=== PATIENT | female | born 1960 | race Caucasian/White ===

== ENCOUNTER 2019-04-15 15:25 | Outpatient (REF) | payer OTHER, MEDICAID, SELFPAY ==
[2019-04-15 21:58] LABS: BUN 7 mg/dL (7-18); CREATININE 0.54 mg/dL (0.55-1.02); Calcium 8.6 mg/dL (8.5-10.1); Chloride 101 mmol/L (98-107); Cholesterol 188 mg/dL (50-200); Glucose 67 mg/dL (70-100); HDL Cholesterol 66 mg/dL (40-60); LDL CHOLESTEROL 97 mg/dL (<100); Potassium 4.3 mmol/L (3.5-5.1); Sodium 139 mmol/L (136-145); Triglyceride 143 mg/dL (30-150); Vitamin B12 386 pg/mL (193-986)
[2019-04-17 06:33] LABS: Vitamin D 25 Total 43.1 ng/ml (30-100)
== END 2019-04-15 15:45 ==
LOC: NCHCN 15:25
PROVIDERS: PCP Family Medicine; Visit Provider Family Medicine
DX: Z00.00 Encounter for general adult medical examination without abnormal findings (principal); E53.8 Deficiency of other specified B group vitamins; M81.0 Age-related osteoporosis without current pathological fracture; Z01.818 Encounter for other preprocedural examination
CPT/HCPCS: 80048; 80061; 82306; 83721; 82607

== ENCOUNTER → 2019-05-02 10:53 | Outpatient (REF) | payer OTHER, SELFPAY ==
--- NOTE | 2019-05-02 09:40 | PAPFT_PTH ---
PATIENT: Trudy Lowe LOC: [facility] U#:[id number] AGE/SX: 65/F ROOM: RE05/02/[address]: Sandra Gonzalez : 1960 BED: DIS: SPEC #: [id number] RECD: 05/05/19 13:07 STATUS: JULIANNA REMarty #: [id number] VIVIAN: 05/02/19 09:[address]: Sandra Gonzalez DEPT: [facility] Cytology RECD BY: Yamila Alvarez Tissues: 1 - CX/ENDOCX FOR PAP SMEARS Procedures: PAP THIN PREP/UVM Screening HPV DNA PROBE Comments: [id number] (CHLAMYDIA/GC)
[2019-05-02 21:19] LABS: Abs Immature Grans 0.03 k/cumm (0.0-0.09); Absolute Basophil Count 0.04 k/cumm (0.0-0.2); Absolute Eosinophil Count 0.18 k/cumm (0.0-0.7); Absolute Lymphocyte Count 2.07 k/cumm (1.2-3.4); Absolute Monocyte Count 0.92 k/cumm (0.11-0.7); Absolute Neutrophil Count 4.39 k/cumm (1.2-6.7); Basophils % 0.5; Eosinophils % 2.4; HCT 42.6 % (36.0-46.0); HGB 13.9 g/dL (12.0-15.5); Immature Grans % 0.4; Lymphocytes % 27.1; Mean Corp. HGB Concentration 32.6 g/dL (32.0-36.0); Mean Corpuscular Hemoglobin 31.1 pg (27.0-33.0); Mean Corpuscular Volume 95.3 fL (80-95); Mean Platelet Volume 11.5 fL (8.0-11.0); Monocytes % 12.1; Neutrophils % 57.5; Platelet Count 274 x1000/uL (130-400); RBC 4.47 m/cumm (4.00-5.20); RBC Distribution Width 12.6 % (11.7-14.6); White Blood Cell Count 7.63 k/cumm (4.4-10.8)
[2019-05-02 21:37] LABS: ALT 26 U/L (12-78); AST 18 U/L (15-37); Albumin 3.4 g/dL (3.4-5.0); Alkaline Phosphatase 82 U/L (46-116); Anion Gap 8.5 mmol/L (3-11); BUN 7 mg/dL (7-18); Bilirubin, Total 0.2 mg/dL (0.2-1.0); CO2 27.5 mmol/L (21.0-32.0); CREATININE 0.53 mg/dL (0.55-1.02); Calcium 8.8 mg/dL (8.5-10.1); Chloride 103 mmol/L (98-107); Glucose 85 mg/dL (70-100); Potassium 3.8 mmol/L (3.5-5.1); Sodium 139 mmol/L (136-145); Total Protein 6.6 g/dL (6.4-8.2)
[2019-05-06 13:46] LABS: Chlamydia Result Negative; GC Result Negative; Specimen Description SEE COMMENTS
== END ==
LOC: NCHCN 10:53
PROVIDERS: PCP Family Medicine; Visit Provider Family Medicine
DX: R10.32 Left lower quadrant pain (principal); Z11.3 Encounter for screening for infections with a predominantly sexual mode of transmission; Z12.4 Encounter for screening for malignant neoplasm of cervix; Z11.51 Encounter for screening for human papillomavirus (HPV)
CPT/HCPCS: 80053; 87491; 87591; 88142; 85025; 87086; 87624

== ENCOUNTER 2019-09-04 13:12 | Outpatient (REF) | payer OTHER, SELFPAY ==
[2019-09-04 21:35] LABS: Anion Gap 7.9 mmol/L (3-11); BUN 6 mg/dL (7-18); CO2 30.1 mmol/L (21.0-32.0); CREATININE 0.53 mg/dL (0.55-1.02); Calcium 9.5 mg/dL (8.5-10.1); Chloride 105 mmol/L (98-107); Glucose 108 mg/dL (70-100); Magnesium 1.7 mg/dL (1.8-2.4); Potassium 4.2 mmol/L (3.5-5.1); Sodium 143 mmol/L (136-145)
[2019-09-04 22:00] LABS: HCT 40.9 % (36.0-46.0); HGB 12.9 g/dL (12.0-15.5); Mean Corp. HGB Concentration 31.5 g/dL (32.0-36.0); Mean Corpuscular Hemoglobin 28.7 pg (27.0-33.0); Mean Corpuscular Volume 90.9 fL (80-95); Platelet Count 344 x1000/uL (130-400); RBC Distribution Width 14.7 % (11.7-14.6); White Blood Cell Count 10.01 k/cumm (4.4-10.8)
== END 2019-09-04 13:32 ==
LOC: NCHCN 13:12
PROVIDERS: PCP Family Medicine; Visit Provider Family Medicine
DX: D64.9 Anemia, unspecified (principal); Z93.2 Ileostomy status
CPT/HCPCS: 80048; 85027; 83735

== ENCOUNTER 2020-04-06 14:59 | Outpatient (REF) | payer OTHER, SELFPAY ==
[2020-04-08 17:14] LABS: COVID-19 RT-PCR Result NEGATIVE (Negative)
== END 2020-04-06 15:19 ==
LOC: NCHCN 14:59
PROVIDERS: PCP Family Medicine; Visit Provider Physician Assistant
DX: R05 Cough (principal)
CPT/HCPCS: U0003

== ENCOUNTER 2020-10-05 15:11 | Outpatient (REF) | payer OTHER, SELFPAY ==
[2020-10-05 20:57] LABS: Magnesium 1.8 mg/dL (1.8-2.4)
== END 2020-10-05 15:31 ==
LOC: NCHCN 15:11
PROVIDERS: PCP Family Medicine; Visit Provider Nurse Practitioner Family
DX: R25.2 Cramp and spasm (principal)
CPT/HCPCS: 83735

== ENCOUNTER 2021-02-17 14:59 | Outpatient (REF) | payer OTHER, MEDICAID, SELFPAY ==
--- NOTE | 2021-02-17 14:15 | PAPFT_PTH ---
PATIENT: Trudy Lowe LOC: [facility]#:[id number] AGE/SX: 60/F ROOM: RE02/17/[address]: Rylie Escobar : 1960 BED: DIS: 02/17/2021 SPEC #: [id number] RECD: 02/18/21 12:57 STATUS: JULIANNA REMarty #: [id number] VIVIAN: 02/17/21 14:[address]: Rylie Escobar DEPT: [facility] Cytology RECD BY: Yamila Alvarez ENTERED: 02/18/21 12:57 SP TYPE: PAPFT OTHR DR: Sandra Gonzalez Tissues: 1 - CX/ENDOCX FOR PAP SMEARS Procedures: PAP THIN PREP/UVM Screening HPV DNA PROBE Comments: [id number] (CHLAMYDIA/GC)
[2021-02-21 11:17] LABS: Hepatitis C Ab w Rflx HCV PCR Negative (Negative)
[2021-02-21 13:52] LABS: Chlamydia Result Negative (Negative); GC Result Negative (Negative)
== END 2021-02-17 15:00 | disposition home or self-care (01) ==
LOC: NCHCN 14:59
PROVIDERS: PCP Family Medicine; Visit Provider Nurse Practitioner Family
DX: Z11.59 Encounter for screening for other viral diseases (principal); Z11.3 Encounter for screening for infections with a predominantly sexual mode of transmission; Z12.4 Encounter for screening for malignant neoplasm of cervix; Z11.51 Encounter for screening for human papillomavirus (HPV); R87.810 Cervical high risk human papillomavirus (HPV) DNA test positive
CPT/HCPCS: 86803; 87491; 87591; 88142; 87624

== ENCOUNTER 2022-05-25 16:32 | Outpatient (REF) | payer OTHER, MEDICAID, SELFPAY ==
--- NOTE | 2022-05-25 16:00 | PAPFT_PTH ---
PATIENT: Trudy Lowe LOC: [facility]#:[id number] AGE/SX: 61/F ROOM: RE05/25/[address]: Sandra Gonzalez : 1960 BED: DIS: 05/25/2022 SPEC #: [id number] RECD: 05/26/22 09:36 STATUS: JULIANNA REQ #: [id number] VIVIAN: 05/25/22 16:[address]: Sandra Gonzalez DEPT: [facility] Cytology RECD BY: Tona Lamb Tissues: 1 - CX/ENDOCX FOR PAP SMEARS Procedures: PAP THIN PREP/UVM Screening HPV DNA PROBE Comments: [id number]
== END 2022-05-25 16:33 | disposition home or self-care (01) ==
LOC: NCHCN 16:32
PROVIDERS: PCP Family Medicine; Visit Provider Family Medicine
DX: Z12.4 Encounter for screening for malignant neoplasm of cervix (principal); Z11.51 Encounter for screening for human papillomavirus (HPV); Z01.419 Encounter for gynecological examination (general) (routine) without abnormal findings
CPT/HCPCS: 88142; 87624

== ENCOUNTER 2022-10-10 20:51 | Outpatient (REF) | payer OTHER, MEDICAID, SELFPAY ==
[2022-10-10 21:08] LABS: Abs Immature Grans 0.04 10^3/uL (0.0-0.06); Absolute Basophil Count 0.09 10^3/uL (0.0-0.2); Absolute Eosinophil Count 0.21 10^3/uL (0.0-0.7); Absolute Lymphocyte Count 2.45 10^3/uL (1.2-3.4); Absolute Monocyte Count 0.65 10^3/uL (0.1-0.8); Absolute Neutrophil Count 5.41 10^3/uL (1.2-6.7); Eosinophils % 2.4; HGB 15.2 g/dL (11.2-15.7); Immature Grans % 0.5; Lymphocytes % 27.7; MCH 30.8 pg (27.0-33.0); MCV 93 fL (80-95); MPV 11.3 fL (8.0-11.0); Monocytes % 7.3; Neutrophils % 61.1; Platelet Count 274 10^3/uL (130-400); RBC 4.94 10^6/uL (3.93-5.22); RDW 13.2 % (11.7-14.6); RDW-SD 45.1 fL; WBC 8.85 10^3/uL (4.4-10.8)
[2022-10-10 21:37] LABS: ALT 61 U/L (14-59); AST 42 U/L (15-37); Albumin 3.9 g/dL (3.4-5.0); Alkaline Phosphatase 98 U/L (46-116); Anion Gap 5.7 mmol/L (3-11); BUN 10 mg/dL (7-18); Bilirubin, Total 0.4 mg/dL (0.2-1.0); CO2 32.3 mmol/L (21.0-32.0); CREATININE 0.7 mg/dL (0.55-1.02); Calcium 9.3 mg/dL (8.5-10.1); Calculated LDL 121 mg/dL (<100); Chloride 101 mmol/L (98-107); Cholesterol 236 mg/dL (<200); Estimated GFR 97.12 (mL/min/1.73m2); Glucose 104 mg/dL (74-106); HDL Cholesterol 61 mg/dL (40-60); Sodium 139 mmol/L (136-145); TSH (W/Ref FT4) 1.65 uIU/mL (0.36-3.74); Total Protein 7.7 g/dL (6.4-8.2); Triglyceride 274 mg/dL (<150)
== END 2022-10-10 20:52 | disposition home or self-care (01) ==
LOC: NCHCN 20:51
PROVIDERS: PCP Family Medicine; Visit Provider Family Medicine
DX: R10.10 Upper abdominal pain, unspecified (principal); E04.1 Nontoxic single thyroid nodule; Z00.00 Encounter for general adult medical examination without abnormal findings
CPT/HCPCS: 80053; 80061; 84443; 85025

== ENCOUNTER 2023-03-12 14:14 | Outpatient (REF) | payer OTHER, MEDICAID, SELFPAY ==
[2023-03-12 14:40] LABS: Abs Immature Grans 0.03 10^3/uL (0.0-0.06); Absolute Basophil Count 0.09 10^3/uL (0.0-0.2); Absolute Neutrophil Count 4.65 10^3/uL (1.2-6.7); Basophils % 1.1; Eosinophils % 2.4; HCT 46.3 % (36.0-46.0); HGB 15.2 g/dL (11.2-15.7); Immature Grans % 0.4; Lymphocytes % 30.2; MCH 30.3 pg (27.0-33.0); MCHC 32.8 % (32.0-36.0); MCV 92 fL (80-95); MPV 10.7 fL (8.0-11.0); Monocytes % 9.7; Neutrophils % 56.2; Platelet Count 290 10^3/uL (130-400); RBC 5.01 10^6/uL (3.93-5.22); RDW 13.2 % (11.7-14.6); RDW-SD 44.4 fL; WBC 8.27 10^3/uL (4.4-10.8)
[2023-03-12 15:24] LABS: Anion Gap 6.1 mmol/L (3-11); BUN 10 mg/dL (7-18); CO2 29.9 mmol/L (21.0-32.0); CREATININE 0.7 mg/dL (0.55-1.02); Calcium 9.5 mg/dL (8.5-10.1); Chloride 101 mmol/L (98-107); Estimated GFR 97.12 (mL/min/1.73m2); Glucose 97 mg/dL (74-106); Potassium 4.2 mmol/L (3.5-5.1); Sodium 137 mmol/L (136-145)
== END 2023-03-12 14:15 | disposition home or self-care (01) ==
LOC: NCHCN 14:14
PROVIDERS: PCP Family Medicine; Visit Provider Podiatrist
DX: D64.9 Anemia, unspecified (principal); Z01.818 Encounter for other preprocedural examination; Z01.812 Encounter for preprocedural laboratory examination
CPT/HCPCS: 80048; 85025

== ENCOUNTER 2023-06-29 21:15 | Outpatient (REF) | payer OTHER, MEDICAID, SELFPAY ==
--- OUTSIDE RECORDS SUMMARY | 2023-06-29 21:18 | XMS_ITS | CCD ---
Author Name Unknown Address [address], [place] [id number] Organization Unknown Address [address] [place] [address] [phone] Care Team Providers Care Mold Inspector Name Role Phone ROSEANN VERDIN Attending Physician [phone] ROSEANN VERDIN Er Physician [phone] ARABELLA Troncoso Registered Nurse [phone] GALEXANDRA Matos Registered Nurse [phone] GROSA MARIA Matos Registered Nurse [phone] Vital Signs Vital Sign Value Unit Date/Time Recent/Initial ? BMI (Body Mass Index) 25.99 kg/m^2 09/29/2021 18: 04 Initial VS Weight Measured 161 lbs 09/29/2021 18:04 Ini tial VS Height 66 in 09/29/2021 18:04 Initial VS BSA (Body Surface Area) 1.84 m^2 09/29/2021 1 8:04 Initial VS BP Systolic 154 mmHg 09/29/2021 18:04 Initial VS BP Diastolic 87 mmHg 09/29/2021 18:04 Initia l VS Respiratory Rate 18 bpm 09/29/2021 18:04 In itial VS Heart Rate 86 bpm 09/29/2021 18:04 Initial VS O2 % BldC Oximetry 97 % 09/29/2021 18:04 Initial VS Body Temperature 36.5 degrees 09/29/2021 18:04 In itial VS Allergies Allergy Code Allergy Type Reaction Status PENICILLINS (CLASS) 0 Drug allergy Act lamar SULFA (sulfonamide) 0 Drug allergy Hives Act lamar SUCCINYLCHOLINE 56503 Drug allergy IRREGULAR HEART Ac tive Procedures Procedure Code Procedure Type Date Emergency Department Visit Moderate Severity 38620 CPT 09/29/2021 History of Immunizations Unknown or Not Available. Problems Unknown or Not Available. Results Unknown or Not Available. Active Medications Medications Administered During Visit Medication Dose Units Frequency Route Date/Time of Last Dose ACETAMINOPHEN TABLET: 325MG 975 MG X1 PO 09/29/2021 18:17 IBUPROFEN TABLET: 600MG 600 MG X1 PO 09/29/2021 18:17 ER-HYDROCODONE/ACET 6 PACK: 5MG/325MG 1 EA PRN Q6H PO 09/29/2021 19:3 7 Encounters Encounter Diagnosis Diagnosis Code Start Date Displaced fracture of head o f right radius, initial encounter for closed fracture [id number] 09/29/2021 Social History Smoking Status Code Start Date End Date Former smoker [id number] 04/25/2019 Patient Decision Aids Unknown or Not Available. Discharge Instructions You were admitted to [facility] on 09/29/2021 17:54 with a principal diagnosis of Displaced fracture of head of right radius, initial encounter for closed fracture You had the following procedures done:Emergency Department Visit Moderate Severity You were discharged from [facility] on 09/29/2021 19:40 Should you have any questions prior to discharge, please contact a member of your healthcare team. If you have left the hospital and have any questions, please contact your primary care physician. Chief Complaint and Reason For Visit Chief Complaint Date of Onset RIGHT ARM INJURY Function Status Unknown or Not Available. Plan of Care Unknown or Not Available. Referral/Transition of Care Unknown or Not Available.
--- OUTSIDE RECORDS SUMMARY | 2023-06-29 21:18 | XMS_ITS | CCD ---
Author Name Unknown Address [address] [place] [address] [id number] Organization Unknown Address [address] [place] [address] [phone] Care Team Providers Care Medical Reception Name Role Phone PADMA DODSON Attending Physician [phone] PADMA DODSON Rounding (Secondary) Physician [phone] Vital Signs Unknown or Not Available. Allergies Allergy Code Allergy Type Reaction Status BONIVA 554230 Drug allergy RASH Active PENICILLINS (CLASS) 0 Drug allergy Rash; Anaphyla xis Active SULFA (sulfonamide) 0 Drug allergy Hives Act lamar SUCCINYLCHOLINE 90444 Drug allergy IRREGULAR HEART Ac tive SUCCINYLCHOLINE CHLORIDE 3565 Drug allergy HEART ARR HYTHMIAS Active BEE STING 0 Allergy to substance Anaphylaxis Act lamar Procedures Unknown or Not Available. History of Immunizations Unknown or Not Available. Problems Unknown or Not Available. Results Unknown or Not Available. Active Medications Medication Code Dose Units Frequency Route Modificatio n Start Date/Time traZODone hydrochloride 100MG Oral Tablet 062107 100 MILLIGRAMS BEDTIME ORAL 7 09:49 Prescription Detail TAKE 100 MILLIGRAMS ORAL BEDTIME Medications Administered During Visit Unknown or Not Available. Encounters Encounter Diagnosis Diagnosis Code Start Date Follow-up orthopedic assessment [id number] 03/20/2023 Social History Smoking Status Code Start Date End Date Former smoker [id number] 04/25/2019 Patient Decision Aids Unknown or Not Available. Discharge Instructions You were admitted to [facility] on 03/20/2023 00:00 with a principal diagnosis of Encounter for other orthopedic aftercare You were discharged from [facility] on 03/20/2023 00:00 Should you have any questions prior to discharge, please contact a member of your healthcare team. If you have left the hospital and have any questions, please contact your primary care physician. Chief Complaint and Reason For Visit Unknown or Not Available. Function Status Unknown or Not Available. Plan of Care Unknown or Not Available. Referral/Transition of Care Unknown or Not Available.
--- OUTSIDE RECORDS SUMMARY | 2023-06-29 21:18 | XMS_ITS | CCD ---
Author Name Unknown Address [address] [place] [address] [id number] Organization Unknown Address [address] [place] [address] [phone] Care Team Providers Care Rn Home Care Name Role Phone KISHAN KUHN Attending Physician [phone] KISHAN KUHN (Secondary) Physician [phone] Vital Signs Unknown or Not Available. Allergies Allergy Code Allergy Type Reaction Status PENICILLINS (CLASS) 0 Drug allergy Act lamar SULFA (sulfonamide) 0 Drug allergy Hives Act lamar SUCCINYLCHOLINE 00343 Drug allergy IRREGULAR HEART Ac tive Procedures Unknown or Not Available. History of Immunizations Unknown or Not Available. Problems Unknown or Not Available. Results Unknown or Not Available. Active Medications Medication Code Dose Units Frequency Route Modificatio n Start Date/Time traZODone hydrochloride 100MG Oral Tablet 898591 100 MILLIGRAMS BEDTIME ORAL 7 09:49 Prescription Detail TAKE 100 MILLIGRAMS ORAL BEDTIME Medications Administered During Visit Unknown or Not Available. Encounters Encounter Diagnosis Diagnosis Code Start Date Idiopathic osteoarthritis [id number] 2020 Social History Smoking Status Code Start Date End Date Former smoker [id number] 04/25/2019 Patient Decision Aids Unknown or Not Available. Discharge Instructions You were admitted to on 10/21/2021 14:08 with a principal diagnosis of Bilateral primary osteoarthritis of knee You were discharged from on 10/21/2021 00:00 Should you have any questions prior [...]
--- OUTSIDE RECORDS SUMMARY | 2023-06-29 21:18 | XMS_ITS | CCD ---
Author Name Unknown Address [address] [place] [address] [phone] Organization Unknown Address [address] [place] [address] [phone] Care Team Providers Care Customer Field Representative Name Role Phone AMIRAH MERLOS Attending Physician [phone] AMIRAH MERLOS Rounding (Secondary) Physic elver [phone] Vital Signs Unknown or Not Available. Allergies Allergy Code Allergy Type Reaction Status PENICILLINS (CLASS) 0 Drug allergy Act lamar SULFA (sulfonamide) 0 Drug allergy Hives Act lamar SUCCINYLCHOLINE 57539 Drug allergy IRREGULAR HEART Ac tive Procedures Unknown or Not Available. History of Immunizations Unknown or Not Available. Problems Unknown or Not Available. Results Unknown or Not Available. Active Medications Medication Code Dose Units Frequency Route Modificatio n Start Date/Time traZODone hydrochloride 100MG Oral Tablet 929423 100 MILLIGRAMS BEDTIME ORAL 7 09:49 Prescription Detail TAKE 100 MILLIGRAMS ORAL BEDTIME Medications Administered During Visit Unknown or Not Available. Encounters Encounter Diagnosis Diagnosis Code Start Date Nondisplaced fracture of hea d of right radius, initial encounter for closed fracture [id number] 10/03/2021 Social History Smoking Status Code Start Date End Date Former smoker [id number] 04/25/2019 Patient Decision Aids Unknown or Not Available. Discharge Instructions You were admitted to [facility] on 10/03/2021 09:41 with a principal diagnosis of Nondisplaced fracture of head of right radius, initial encounter for closed fracture You were discharged from [facility] on 10/03/2021 00:00 Should you have any questions prior [...]
--- OUTSIDE RECORDS SUMMARY | 2023-06-29 21:18 | XMS_ITS | CCD ---
Author Name Unknown Address [address] [place] [address] [phone] Organization Unknown Address [address] [place] [address] [phone] Care Team Providers Care Machine Shop Apprentice Name Role Phone PADMA DODSON Attending Physician [phone] PADMA DODSON Rounding (Secondary) Physician [phone] Vital Signs Unknown or Not Available. Allergies Allergy Code Allergy Type Reaction Status PENICILLINS (CLASS) 0 Drug allergy Act lamar SULFA (sulfonamide) 0 Drug allergy Hives Act lamar SUCCINYLCHOLINE 12598 Drug allergy IRREGULAR HEART Ac tive Procedures Unknown or Not Available. History of Immunizations Unknown or Not Available. Problems Unknown or Not Available. Results Unknown or Not Available. Active Medications Medication Code Dose Units Frequency Route Modificatio n Start Date/Time traZODone hydrochloride 100MG Oral Tablet 266814 100 MILLIGRAMS BEDTIME ORAL 7 09:49 Prescription Detail TAKE 100 MILLIGRAMS ORAL BEDTIME Medications Administered During Visit Unknown or Not Available. Encounters Encounter Diagnosis Diagnosis Code Start Date Other hammer toe(s) (acquired), left foot M2042 02/15/2023 Social History Smoking Status Code Start Date End Date Former smoker [id number] 04/25/2019 Patient Decision Aids Unknown or Not Available. Discharge Instructions You were admitted to [facility] on 02/15/2023 11:03 with a principal diagnosis of Other hammer toe(s) (acquired), left foot You were discharged from [facility] on 02/15/2023 00:00 Should you have any questions prior [...]
--- OUTSIDE RECORDS SUMMARY | 2023-06-29 21:18 | XMS_ITS | CCD ---
Author Name Unknown Address [address] [place] [address] [id number] Organization Unknown Address [address] [place] [address] [phone] Care Team Providers Care Supervisor Blast Furnace Name Role Phone PADMA DODSON Attending Physician [phone] Vital Signs Vital Sign Value Unit Date/Time Recent/Initial ? BP Systolic 160 mmHg 03/14/2023 09:10 Initial VS BP Diastolic 95 mmHg 03/14/2023 09:10 Initia l VS Respiratory Rate 16 bpm 03/14/2023 09:10 In itial VS Heart Rate 71 bpm 03/14/2023 09:10 Initial VS O2 % BldC Oximetry 99 % 03/14/2023 09:10 Initial VS Body Temperature 36 degrees 03/14/2023 09:10 In itial VS Allergies Allergy Code Allergy Type Reaction Status BONIVA 874126 Drug allergy RASH Active PENICILLINS (CLASS) 0 Drug allergy Rash; Anaphyla xis Active SULFA (sulfonamide) 0 Drug allergy Hives Act lamar SUCCINYLCHOLINE 01170 Drug allergy IRREGULAR HEART Ac tive SUCCINYLCHOLINE CHLORIDE 3565 Drug allergy HEART ARR HYTHMIAS Active BEE STING 0 Allergy to substance Anaphylaxis Act lamar Procedures Procedure Code Procedure Type Date Correction, Hammertoe 70935 CPT 2022 Ostectomy, Partial Excision, 5th Metatarsal Head (Bunionette) (Sep Proc) 89767 CPT 03/14/2023 Anesthesia, Open Proc, Bones , Lower Leg/Ankle/Foot; NOS 80077 CPT 03/14/2023 History of Immunizations Unknown or Not Available. Problems Unknown or Not Available. Results BASIC METABOLIC PANEL (BMP) - Collect Date/Time: 03/14/2023 07:20 Test Name Code Test Result Test Units Test Ref Rang e GLUCOSE 2345-7 110 mg/dL L=70 H=116 BUN 3094-0 10 mg/dL L=6 H=25 CREATININE 2160-0 0.62 mg/dL L=0.51 H=0.95 SODIUM SERUM 2951-2 141 mmol/L L=136 H=145 POTASSIUM SERUM 2823-3 3.7 mmol/L L=3.4 H=5 .2 CHLORIDE SERUM 2075-0 105 mmol/L L=96 H=110 CARBON DIOXIDE (CO2) 2028-9 28 mmol/L L=22 H=34 ANION GAP 84603-6 8.2 mmol/L CALCIUM SERUM 87674-6 8.8 mg/dL L=8.2 H=10. 2 AGE 62 years eGFR (non-Afr.Amer.) 16306-0 97 mL/min eGFR (Afr-Kazakh) 39273-5 118 mL/min Active Medications Medications Administered During Visit Medication Dose Units Frequency Route Date/Time of Last Dose MIDAZOLAM INJ SDV: 2MG/2ML 2 MG PRN IVP 03/14/2023 07:33 CLINDAMYCIN IVPB PREMIX: 900MG/50ML 900 MG X1 03/14/2023 07:4 0 ACETAMINOPHEN INJ IVPB: 1000MG/100ML 1000 MG PRN IN PACU X1 03/14/2023 09 :26 OxyCODONE TABLET no apap added: 5mg 5 MG PRN IN PACU Q4H PO 03/14/2023 0 9:26 Encounters Encounter Diagnosis Diagnosis Code Start Date Other hammer toe(s) (acquired), left foot M2042 03/14/2023 Social History Smoking Status Code Start Date End Date Former smoker [id number] 04/25/2019 Patient Decision Aids Unknown or Not Available. Discharge Instructions You were admitted to on 03/14/2023 06:19 with a principal diagnosis of Other hammer toe(s) (acquired), left foot You had the following procedures done:Correction, HammertoeOstectomy, Partial Excision, 5th Metatarsal Head (Bunionette) (Sep Proc)Anesthesia, Open Proc, Bones, Lower Leg/Ankle/Foot; NOS You had the following tests done:BASIC METABOLIC PANEL (BMP) You were discharged from on 03/14/2023 09:53 Should you have any questions prior to [...]
--- OUTSIDE RECORDS SUMMARY | 2023-06-29 21:18 | XMS_ITS | CCD ---
Author Name Unknown Address [address] [place] [address] [phone] Organization Unknown Address [address] [place] [address] [phone] Care Team Providers Care Rn Transitional Name Role Phone IMTIAZ BHATIA Attending Physician [phone] Vital Signs Unknown or Not Available. Allergies Allergy Code Allergy Type Reaction Status PENICILLINS (CLASS) 0 Drug allergy Act lamar SULFA (sulfonamide) 0 Drug allergy Hives Act lamar SUCCINYLCHOLINE 64272 Drug allergy IRREGULAR HEART Ac tive Procedures Unknown or Not Available. History of Immunizations Unknown or Not Available. Problems Unknown or Not Available. Results Unknown or Not Available. Active Medications Medication Code Dose Units Frequency Route Modificatio n Start Date/Time traZODone hydrochloride 100MG Oral Tablet 781903 100 MILLIGRAMS BEDTIME ORAL 7 09:49 Prescription Detail TAKE 100 MILLIGRAMS ORAL BEDTIME Medications Administered During Visit Unknown or Not Available. Encounters Encounter Diagnosis Diagnosis Code Start Date Bilateral primary osteoarthritis of knee M170 12/27/2022 Social History Smoking Status Code Start Date End Date Former smoker [id number] 04/25/2019 Patient Decision Aids Unknown or Not Available. Discharge Instructions You were admitted to [facility] on 12/27/2022 12:26 with a principal diagnosis of Bilateral primary osteoarthritis of knee You were discharged from [facility] on 01/09/2023 10:02 Should you have any questions prior to [...]
--- OUTSIDE RECORDS SUMMARY | 2023-06-29 21:18 | XMS_ITS | CCD ---
Author Name Unknown Address [address] [place] [address] [phone] Organization Unknown Address [address] [place] [address] [phone] Care Team Providers Care Poultry Cleaner Name Role Phone PADMA DODSON Attending Physician [phone] PADMA DODSON Rounding (Secondary) Physician [phone] Vital Signs Unknown or Not Available. Allergies Allergy Code Allergy Type Reaction Status BONIVA 774787 Drug allergy RASH Active PENICILLINS (CLASS) 0 Drug allergy Rash; Anaphyla xis Active SULFA (sulfonamide) 0 Drug allergy Hives Act lamar SUCCINYLCHOLINE 57741 Drug allergy IRREGULAR HEART Ac tive SUCCINYLCHOLINE CHLORIDE 3565 Drug allergy HEART ARR HYTHMIAS Active BEE STING 0 Allergy to substance Anaphylaxis Act lamar Procedures Unknown or Not Available. History of Immunizations Unknown or Not Available. Problems Unknown or Not Available. Results Unknown or Not Available. Active Medications Medication Code Dose Units Frequency Route Modificatio n Start Date/Time traZODone hydrochloride 100MG Oral Tablet 249970 100 MILLIGRAMS BEDTIME ORAL 7 09:49 Prescription Detail TAKE 100 MILLIGRAMS ORAL BEDTIME Medications Administered During Visit Unknown or Not Available. Encounters Encounter Diagnosis Diagnosis Code Start Date Follow-up orthopedic assessment [id number] 03/28/2023 Social History Smoking Status Code Start Date End Date Former smoker [id number] 04/25/2019 Patient Decision Aids Unknown or Not Available. Discharge Instructions You were admitted to [facility] on 03/28/2023 00:00 with a principal diagnosis of Encounter for other orthopedic aftercare You were discharged from [facility] on 03/28/2023 00:00 Should you have any questions prior [...]
--- OUTSIDE RECORDS SUMMARY | 2023-06-29 21:19 | XMS_ITS | CCD ---
Author Name Unknown Address [address] [place] [address] [phone] Organization Unknown Address [address] [place] [address] [phone] Care Team Providers Care Aircraft Structural Repair Mechanic Name Role Phone ANÍBAL MACIEL Attending Physician [phone] Vital Signs Unknown or Not Available. Allergies Allergy Code Allergy Type Reaction Status PENICILLINS (CLASS) 0 Drug allergy Act lamar SULFA (sulfonamide) 0 Drug allergy Hives Act lamar SUCCINYLCHOLINE 95806 Drug allergy IRREGULAR HEART Ac tive Procedures Unknown or Not Available. History of Immunizations Unknown or Not Available. Problems Unknown or Not Available. Results Unknown or Not Available. Active Medications Medication Code Dose Units Frequency Route Modificatio n Start Date/Time traZODone hydrochloride 100MG Oral Tablet 976104 100 MILLIGRAMS BEDTIME ORAL 7 09:49 Prescription Detail TAKE 100 MILLIGRAMS ORAL BEDTIME Medications Administered During Visit Unknown or Not Available. Encounters Encounter Diagnosis Diagnosis Code Start Date Screening mammography [id number] 11/30/2021 Social History Smoking Status Code Start Date End Date Former smoker [id number] 04/25/2019 Patient Decision Aids Unknown or Not Available. Discharge Instructions You were admitted to [facility] on 11/30/2021 10:35 with a principal diagnosis of Encounter for screening mammogram for malignant neoplasm of breast You were discharged from [facility] on 11/30/2021 10:35 Should you have any questions prior to discharge, please contact a member of your healthcare team. If you have left the hospital and have any questions, please contact your primary care physician. Chief Complaint and Reason For Visit Chief Complaint Date of Onset Encounter for screening mammogram for ma lignant neoplasm of breast Function Status Unknown or Not Available. Plan of Care Unknown or Not Available. Referral/Transition of Care Unknown or Not Available.
--- OUTSIDE RECORDS SUMMARY | 2023-06-29 21:19 | XMS_ITS | CCD ---
Author Name Unknown Address [address] [place] [address] [phone] Organization Unknown Address [address] [place] [address] [phone] Care Team Providers Care Construction Consultant Name Role Phone AMIRAH MERLOS Attending Physician [phone] AMIRAH MERLOS Rounding (Secondary) Physic elver [phone] Vital Signs Unknown or Not Available. Allergies Allergy Code Allergy Type Reaction Status PENICILLINS (CLASS) 0 Drug allergy Act lamar SULFA (sulfonamide) 0 Drug allergy Hives Act lamar SUCCINYLCHOLINE 85025 Drug allergy IRREGULAR HEART Ac tive Procedures Unknown or Not Available. History of Immunizations Unknown or Not Available. Problems Unknown or Not Available. Results Unknown or Not Available. Active Medications Medication Code Dose Units Frequency Route Modificatio n Start Date/Time traZODone hydrochloride 100MG Oral Tablet 616690 100 MILLIGRAMS BEDTIME ORAL 7 09:49 Prescription Detail TAKE 100 MILLIGRAMS ORAL BEDTIME Medications Administered During Visit Unknown or Not Available. Encounters Encounter Diagnosis Diagnosis Code Start Date Nondisplaced fracture of hea d of right radius, subsequent encounter for closed fracture with routine healing [id number] 01/2021 Social History Smoking Status Code Start Date End Date Former smoker [id number] 04/25/2019 Patient Decision Aids Unknown or Not Available. Discharge Instructions You were admitted to [facility] on 10/21/2021 14:10 with a principal diagnosis of Nondisplaced fracture of head of right radius, subsequent encounter for closed fracture with routine healing You were discharged from [facility] on 10/21/2021 00:00 Should you have any [...]
--- OUTSIDE RECORDS SUMMARY | 2023-06-29 21:19 | XMS_ITS | CCD ---
Author Name Unknown Address [address] [place] [address] [phone] Organization Unknown Address [address] [place] [address] [phone] Care Team Providers Care Car Wrecker Name Role Phone KISHAN KUHN Attending Physician [phone] KISHAN KUHN (Secondary) Physician [phone] Vital Signs Unknown or Not Available. Allergies Allergy Code Allergy Type Reaction Status PENICILLINS (CLASS) 0 Drug allergy Act lamar SULFA (sulfonamide) 0 Drug allergy Hives Act lamar SUCCINYLCHOLINE 03790 Drug allergy IRREGULAR HEART Ac tive Procedures Unknown or Not Available. History of Immunizations Unknown or Not Available. Problems Unknown or Not Available. Results Unknown or Not Available. Active Medications Medication Code Dose Units Frequency Route Modificatio n Start Date/Time traZODone hydrochloride 100MG Oral Tablet 831618 100 MILLIGRAMS BEDTIME ORAL 7 09:49 Prescription Detail TAKE 100 MILLIGRAMS ORAL BEDTIME Medications Administered During Visit Unknown or Not Available. Encounters Encounter Diagnosis Diagnosis Code Start Date Idiopathic osteoarthritis [id number] 2020 Social History Smoking Status Code Start Date End Date Former smoker [id number] 04/25/2019 Patient Decision Aids Unknown or Not Available. Discharge Instructions You were admitted to [facility] on 11/16/2021 14:16 with a principal diagnosis of Bilateral primary osteoarthritis of knee You were discharged from [facility] on 11/16/2021 00:00 Should you have any questions prior [...]
--- OUTSIDE RECORDS SUMMARY | 2023-06-29 21:19 | XMS_ITS | CCD ---
Author Name Unknown Address [address] [place] [address] [id number] Organization Unknown Address [address] [place] [address] [phone] Care Team Providers Care Neuroscience Director Na Name Role Phone ROSA MARIA ROJAS Attending Physician [phone] ROSA MARIA ROJAS Rounding (Secondary) Physician [phone] Vital Signs Unknown or Not Available. Allergies Allergy Code Allergy Type Reaction Status PENICILLINS (CLASS) 0 Drug allergy Act lamar SULFA (sulfonamide) 0 Drug allergy Hives Act lamar SUCCINYLCHOLINE 73957 Drug allergy IRREGULAR HEART Ac tive Procedures Unknown or Not Available. History of Immunizations Unknown or Not Available. Problems Unknown or Not Available. Results Unknown or Not Available. Active Medications Medication Code Dose Units Frequency Route Modificatio n Start Date/Time traZODone hydrochloride 100MG Oral Tablet 352126 100 MILLIGRAMS BEDTIME ORAL 7 09:49 Prescription Detail TAKE 100 MILLIGRAMS ORAL BEDTIME Medications Administered During Visit Unknown or Not Available. Encounters Encounter Diagnosis Diagnosis Code Start Date Idiopathic osteoarthritis [id number] 2020 Social History Smoking Status Code Start Date End Date Former smoker [id number] 04/25/2019 Patient Decision Aids Unknown or Not Available. Discharge Instructions You were admitted to [facility] on 11/16/2021 11:27 with a principal diagnosis of Unilateral primary osteoarthritis of first carpometacarpal joint, right hand You were discharged from [facility] on 11/16/2021 00:00 Should you have any [...]
--- OUTSIDE RECORDS SUMMARY | 2023-06-29 21:19 | XMS_ITS | CCD ---
Author Name Unknown Address [address] [place] [address] [phone] Organization Unknown Address [address] [place] [address] [phone] Care Team Providers Care Senior Informatica Developer Name Role Phone ROSA MARIA ROJAS Attending Physician [phone] Vital Signs Unknown or Not Available. Allergies Allergy Code Allergy Type Reaction Status PENICILLINS (CLASS) 0 Drug allergy Act lamar SULFA (sulfonamide) 0 Drug allergy Hives Act lamar SUCCINYLCHOLINE 18317 Drug allergy IRREGULAR HEART Ac tive Procedures Unknown or Not Available. History of Immunizations Unknown or Not Available. Problems Unknown or Not Available. Results Unknown or Not Available. Active Medications Medication Code Dose Units Frequency Route Modificatio n Start Date/Time traZODone hydrochloride 100MG Oral Tablet 036347 100 MILLIGRAMS BEDTIME ORAL 7 09:49 Prescription Detail TAKE 100 MILLIGRAMS ORAL BEDTIME Medications Administered During Visit Unknown or Not Available. Encounters Encounter Diagnosis Diagnosis Code Start Date Pain in left shoulder [id number] 12/02/2021 Social History Smoking Status Code Start Date End Date Former smoker [id number] 04/25/2019 Patient Decision Aids Unknown or Not Available. Discharge Instructions You were admitted to [facility] on 12/02/2021 13:35 with a principal diagnosis of Pain in left shoulder You were discharged from [facility] on 02/28/2022 15:41 Should you have any questions prior to [...]
--- OUTSIDE RECORDS SUMMARY | 2023-06-29 21:20 | XMS_ITS | CCD ---
Author Name Unknown Address [address] [place] [address] [id number] Organization Unknown Address [address] [place] [address] [phone] Care Team Providers Care Show Girl Name Role Phone PADMA DODSON Attending Physician [phone] PADMA DODSON Rounding (Secondary) Physician [phone] Vital Signs Unknown or Not Available. Allergies Allergy Code Allergy Type Reaction Status PENICILLINS (CLASS) 0 Drug allergy Act lamar SULFA (sulfonamide) 0 Drug allergy Hives Act lamar SUCCINYLCHOLINE 32706 Drug allergy IRREGULAR HEART Ac tive Procedures Unknown or Not Available. History of Immunizations Unknown or Not Available. Problems Unknown or Not Available. Results Unknown or Not Available. Active Medications Medication Code Dose Units Frequency Route Modificatio n Start Date/Time traZODone hydrochloride 100MG Oral Tablet 081108 100 MILLIGRAMS BEDTIME ORAL 7 09:49 Prescription Detail TAKE 100 MILLIGRAMS ORAL BEDTIME Medications Administered During Visit Unknown or Not Available. Encounters Encounter Diagnosis Diagnosis Code Start Date Metatarsalgia, left foot M7742 022 Social History Smoking Status Code Start Date End Date Former smoker [id number] 04/25/2019 Patient Decision Aids Unknown or Not Available. Discharge Instructions You were admitted to [facility] on 02/07/2022 10:15 with a principal diagnosis of Metatarsalgia, left foot You were discharged from [facility] on 02/07/2022 00:00 Should you have any questions prior [...]
--- OUTSIDE RECORDS SUMMARY | 2023-06-29 21:20 | XMS_ITS | CCD ---
Author Name Unknown Address [address] [place] [address] [phone] Organization Unknown Address [address] [place] [address] [phone] Care Team Providers Care Library Paraprofessional Name Role Phone PADMA DODSON Attending Physician [phone] PADMA DODSON Rounding (Secondary) Physician [phone] Vital Signs Unknown or Not Available. Allergies Allergy Code Allergy Type Reaction Status PENICILLINS (CLASS) 0 Drug allergy Act lamar SULFA (sulfonamide) 0 Drug allergy Hives Act lamar SUCCINYLCHOLINE 75184 Drug allergy IRREGULAR HEART Ac tive Procedures Unknown or Not Available. History of Immunizations Unknown or Not Available. Problems Unknown or Not Available. Results Unknown or Not Available. Active Medications Medication Code Dose Units Frequency Route Modificatio n Start Date/Time traZODone hydrochloride 100MG Oral Tablet 859330 100 MILLIGRAMS BEDTIME ORAL 7 09:49 Prescription Detail TAKE 100 MILLIGRAMS ORAL BEDTIME Medications Administered During Visit Unknown or Not Available. Encounters Encounter Diagnosis Diagnosis Code Start Date Tailor's bunion of left foot [id number] Social History Smoking Status Code Start Date End Date Former smoker [id number] 04/25/2019 Patient Decision Aids Unknown or Not Available. Discharge Instructions You were admitted to [facility] on 03/07/2023 00:00 with a principal diagnosis of Bunionette of left foot You were discharged from [facility] on 03/07/2023 00:00 Should you have any questions prior [...]
--- OUTSIDE RECORDS SUMMARY | 2023-06-29 21:20 | XMS_ITS | CCD ---
Author Name Unknown Address [address] [place] [address] [phone] Organization Unknown Address [address] [place] [address] [phone] Care Team Providers Care Licensed Vocational Nurse Name Role Phone CARMEN FELIX Attending Physician [phone] CARMEN FELIX Rounding (Secondary) Physician [phone] Vital Signs Unknown or Not Available. Allergies Allergy Code Allergy Type Reaction Status PENICILLINS (CLASS) 0 Drug allergy Act lamar SULFA (sulfonamide) 0 Drug allergy Hives Act lamar SUCCINYLCHOLINE 30758 Drug allergy IRREGULAR HEART Ac tive Procedures Procedure Code Procedure Type Date Arthrocentesis Aspir&/[place] [address] CPT 08/16/2022 History of Immunizations Unknown or Not Available. Problems Unknown or Not Available. Results Unknown or Not Available. Active Medications Medication Code Dose Units Frequency Route Modificatio n Start Date/Time traZODone hydrochloride 100MG Oral Tablet 732409 100 MILLIGRAMS BEDTIME ORAL 7 09:49 Prescription Detail TAKE 100 MILLIGRAMS ORAL BEDTIME Medications Administered During Visit Unknown or Not Available. Encounters Encounter Diagnosis Diagnosis Code Start Date Bilateral primary osteoarthritis of knee M170 08/16/2022 Social History Smoking Status Code Start Date End Date Former smoker [id number] 04/25/2019 Patient Decision Aids Unknown or Not Available. Discharge Instructions You were admitted to on 08/16/2022 15:04 with a principal diagnosis of Bilateral primary osteoarthritis of knee You had the following procedures done:Arthrocentesis Aspir&/Inj Major Jt/Bursa w/o US You were discharged from on 08/16/2022 00:00 Should you have any questions prior [...]
--- OUTSIDE RECORDS SUMMARY | 2023-06-29 21:20 | XMS_ITS | CCD ---
Author Name Unknown Address [address] [place] [address] [phone] Organization Unknown Address [address] [place] [address] [phone] Care Team Providers Care Science Consultant Name Role Phone PADMA DODSON Attending Physician [phone] PADMA DODSON Rounding (Secondary) Physician [phone] Vital Signs Unknown or Not Available. Allergies Allergy Code Allergy Type Reaction Status PENICILLINS (CLASS) 0 Drug allergy Act lamar SULFA (sulfonamide) 0 Drug allergy Hives Act lamar SUCCINYLCHOLINE 80747 Drug allergy IRREGULAR HEART Ac tive Procedures Unknown or Not Available. History of Immunizations Unknown or Not Available. Problems Unknown or Not Available. Results Unknown or Not Available. Active Medications Medication Code Dose Units Frequency Route Modificatio n Start Date/Time traZODone hydrochloride 100MG Oral Tablet 830004 100 MILLIGRAMS BEDTIME ORAL 7 09:49 Prescription Detail TAKE 100 MILLIGRAMS ORAL BEDTIME Medications Administered During Visit Unknown or Not Available. Encounters Encounter Diagnosis Diagnosis Code Start Date Non-traumatic tendon rupture [id number] Social History Smoking Status Code Start Date End Date Former smoker [id number] 04/25/2019 Patient Decision Aids Unknown or Not Available. Discharge Instructions You were admitted to [facility] on 11/02/2022 08:56 with a principal diagnosis of Spontaneous rupture of other tendons, left ankle and foot You were discharged from [facility] on 11/02/2022 00:00 Should you have any questions prior [...]
--- OUTSIDE RECORDS SUMMARY | 2023-06-29 21:20 | XMS_ITS | CCD ---
Author Name Unknown Address [address] [place] [address] [phone] Organization Unknown Address [address] [place] [address] [phone] Care Team Providers Care Voice Professor Name Role Phone PADMA DODSON Attending Physician [phone] PADMA DODSON Rounding (Secondary) Physician [phone] Vital Signs Unknown or Not Available. Allergies Allergy Code Allergy Type Reaction Status PENICILLINS (CLASS) 0 Drug allergy Act lamar SULFA (sulfonamide) 0 Drug allergy Hives Act lamar SUCCINYLCHOLINE 24236 Drug allergy IRREGULAR HEART Ac tive Procedures Unknown or Not Available. History of Immunizations Unknown or Not Available. Problems Unknown or Not Available. Results Unknown or Not Available. Active Medications Medication Code Dose Units Frequency Route Modificatio n Start Date/Time traZODone hydrochloride 100MG Oral Tablet 186992 100 MILLIGRAMS BEDTIME ORAL 7 09:49 Prescription Detail TAKE 100 MILLIGRAMS ORAL BEDTIME Medications Administered During Visit Unknown or Not Available. Encounters Encounter Diagnosis Diagnosis Code Start Date Refusal of treatment by patient [id number] 03/01/2022 Social History Smoking Status Code Start Date End Date Former smoker 5046417 04/25/2019 Patient Decision Aids Unknown or Not Available. Discharge Instructions You were admitted to [facility] on 03/01/2022 12:14 with a principal diagnosis of Procedure and treatment not carried out because of patient's decision for unspecified reasons You were discharged from [facility] on 03/01/2022 13:27 Should you have any questions prior to [...]
--- OUTSIDE RECORDS SUMMARY | 2023-06-29 21:20 | XMS_ITS | CCD ---
Author Name Unknown Address [address] [place] [address] [phone] Organization Unknown Address [address] [place] [address] [phone] Care Team Providers Care Preventive Maintenance Coordinator Name Role Phone PADMA DODSON Attending Physician [phone] PADMA DODSON Rounding (Secondary) Physician [phone] Vital Signs Unknown or Not Available. Allergies Allergy Code Allergy Type Reaction Status PENICILLINS (CLASS) 0 Drug allergy Act lamar SULFA (sulfonamide) 0 Drug allergy Hives Act lamar SUCCINYLCHOLINE 76214 Drug allergy IRREGULAR HEART Ac tive Procedures Unknown or Not Available. History of Immunizations Unknown or Not Available. Problems Unknown or Not Available. Results Unknown or Not Available. Active Medications Medication Code Dose Units Frequency Route Modificatio n Start Date/Time traZODone hydrochloride 100MG Oral Tablet 540844 100 MILLIGRAMS BEDTIME ORAL 7 09:49 Prescription Detail TAKE 100 MILLIGRAMS ORAL BEDTIME Medications Administered During Visit Unknown or Not Available. Encounters Encounter Diagnosis Diagnosis Code Start Date Enthesopathy of left foot [id number] 08/20 Social History Smoking Status Code Start Date End Date Former smoker [id number] 04/25/2019 Patient Decision Aids Unknown or Not Available. Discharge Instructions You were admitted to [facility] on 09/12/2022 09:40 with a principal diagnosis of Other enthesopathy of left foot and ankle You were discharged from [facility] on 09/12/2022 00:00 Should you have any questions prior [...]
--- OUTSIDE RECORDS SUMMARY | 2023-06-29 21:20 | XMS_ITS | Continuity of Care Document ---
Author Name Unknown Organization [facility] Address [address] [place] [phone] Phone Care Team Providers Care Final Cleaner Name Role Phone No Information Unavailable Unavailable Medications Medication Instructions Dosage Effective Dates (start - stop) Status Comments Klonopin 0.5 mg Tab As directed. one cierra ly as needed. - Active Celexa 10 mg Tab Take one tablet by mouth daily - Active Restoril 30 mg Cap Take one tablet by mouth before bedtime - Active Prilosec OTC 20 mg Tab Take one tablet by mouth daily - Active Procedures Procedure Date Offic/outpt E&m Estab Low-mod Offic/outpt E&m New Low-mod 07 Results Test Name Date and Time Measure Units Reference Range Abnormal Flag Status Commen ts Panel Description: evaluation procedure Final Final Advance Directives Directive Yes / No Effective Date File Name No Information Encounters Encounter Description Practice Location Reason(s) For Visit Diagnoses Date Provider Providers Copied on Encounter [facility] , [address] [place] [address], [id number], tel:[phone] No Information 6 No Information [address], [id number], tel:[phone] [facility] No Information 7 Nurse Office. [address] [place] [address], [facility], . tel:[phone] Offic/outpt E&m Estab Lowmod [address], [id number], tel:[phone] [facility] lipid test (chief complaint) rash (chief complaint) abnormal pap (chief complaint) Abn Pap Smear-oth SiteHematuriaAnx iety State Nos No Information Offic/outpt E&m [address] , [address] [place] [address], [id number], tel:[phone] [facility] Gerd (chief complaint) Spot on Kidney (chief complaint) Bump (chief complaint) joint aches (chief complaint) insomnia (chief complaint) Tobacco Use DisorderAnxiety State NosInsomnia NecUncert Behavior Pedro NosEsophageal Reflux No Information Family History Family Member Type Diagnosis Age At Onset No Information Payers Payer name Insurance type Covered green party ID Authoriza tion(s) No Information Social History Type Description Quantity Date Captured Comments Sex Female Smoking Status No Information Chief Complaint And Reason For Visit No Information History Of Present Illness Encounter Date Complaint History Of Prese nt Illness No Information Instructions Date Instruction Additional Infor mation No Information Assessments Type Assessment Date No Information
--- OUTSIDE RECORDS SUMMARY | 2023-06-29 21:20 | XMS_ITS | CCD ---
Author Name Unknown Address [address] [place] [address] [phone] Organization Unknown Address [address] [place] [address] [phone] Care Team Providers Care Bioassayist Name Role Phone PATIENCE BURDEN Attending Physician [phone] PATIENCE BURDEN Rounding (Secondary) Physician [phone] Vital Signs Unknown or Not Available. Allergies Allergy Code Allergy Type Reaction Status PENICILLINS (CLASS) 0 Drug allergy Act lamar SULFA (sulfonamide) 0 Drug allergy Hives Act lamar SUCCINYLCHOLINE 75270 Drug allergy IRREGULAR HEART Ac tive Procedures Unknown or Not Available. History of Immunizations Unknown or Not Available. Problems Unknown or Not Available. Results Unknown or Not Available. Active Medications Medication Code Dose Units Frequency Route Modificatio n Start Date/Time traZODone hydrochloride 100MG Oral Tablet 062158 100 MILLIGRAMS BEDTIME ORAL 7 09:49 Prescription Detail TAKE 100 MILLIGRAMS ORAL BEDTIME Medications Administered During Visit Unknown or Not Available. Encounters Encounter Diagnosis Diagnosis Code Start Date Canceled operative procedure [id number] 02/2022 Social History Smoking Status Code Start Date End Date Former smoker 1673969 04/25/2019 Patient Decision Aids Unknown or Not Available. Discharge Instructions You were admitted to [facility] on 06/22/2022 10:38 with a principal diagnosis of Procedure and treatment not carried out, unspecified reason You were discharged from [facility] on 06/22/2022 10:56 Should you have any questions prior to [...]
--- OUTSIDE RECORDS SUMMARY | 2023-06-29 21:20 | XMS_ITS | CCD ---
Author Name Unknown Address [address] [place] [address] [phone] Organization Unknown Address [address] [place] [address] [phone] Care Team Providers Care Fret Saw Operator Name Role Phone PADMA DODSON Attending Physician [phone] PADMA DODSON Rounding (Secondary) Physician [phone] Vital Signs Unknown or Not Available. Allergies Allergy Code Allergy Type Reaction Status PENICILLINS (CLASS) 0 Drug allergy Act lamar SULFA (sulfonamide) 0 Drug allergy Hives Act lamar SUCCINYLCHOLINE 11866 Drug allergy IRREGULAR HEART Ac tive Procedures Unknown or Not Available. History of Immunizations Unknown or Not Available. Problems Unknown or Not Available. Results Unknown or Not Available. Active Medications Medication Code Dose Units Frequency Route Modificatio n Start Date/Time traZODone hydrochloride 100MG Oral Tablet 754200 100 MILLIGRAMS BEDTIME ORAL 7 09:49 Prescription Detail TAKE 100 MILLIGRAMS ORAL BEDTIME Medications Administered During Visit Unknown or Not Available. Encounters Encounter Diagnosis Diagnosis Code Start Date Metatarsalgia, left foot M7742 022 Social History Smoking Status Code Start Date End Date Former smoker 5003719 04/25/2019 Patient Decision Aids Unknown or Not Available. Discharge Instructions You were admitted to [facility] on 02/22/2022 12:57 with a principal diagnosis of Metatarsalgia, left foot You were discharged from [facility] on 02/22/2022 00:00 Should you have any questions prior [...]
--- OUTSIDE RECORDS SUMMARY | 2023-06-29 21:20 | XMS_ITS | CCD ---
Author Name Unknown Address [address] [place] [address] [phone] Organization Unknown Address [address] [place] [address] [phone] Care Team Providers Care Placement Secretary Name Role Phone ROSA MARIA ROJAS Attending Physician [phone] ROSA MARIA ROJAS Rounding (Secondary) Physician [phone] Vital Signs Unknown or Not Available. Allergies Allergy Code Allergy Type Reaction Status PENICILLINS (CLASS) 0 Drug allergy Act lamar SULFA (sulfonamide) 0 Drug allergy Hives Act lamar SUCCINYLCHOLINE 28839 Drug allergy IRREGULAR HEART Ac tive Procedures Unknown or Not Available. History of Immunizations Unknown or Not Available. Problems Unknown or Not Available. Results Unknown or Not Available. Active Medications Medication Code Dose Units Frequency Route Modificatio n Start Date/Time traZODone hydrochloride 100MG Oral Tablet 472103 100 MILLIGRAMS BEDTIME ORAL 7 09:49 Prescription Detail TAKE 100 MILLIGRAMS ORAL BEDTIME Medications Administered During Visit Unknown or Not Available. Encounters Encounter Diagnosis Diagnosis Code Start Date Idiopathic osteoarthritis [id number] 2021 Social History Smoking Status Code Start Date End Date Former smoker 8246277 04/25/2019 Patient Decision Aids Unknown or Not Available. Discharge Instructions You were admitted to [facility] on 12/28/2021 12:42 with a principal diagnosis of Unilateral primary osteoarthritis of first carpometacarpal joint, right hand You were discharged from [facility] on 12/28/2021 00:00 Should you have any questions prior [...]
[2023-06-29 22:04] LABS: ALT 40 U/L (14-59); AST 29 U/L (15-37); Albumin 3.9 g/dL (3.4-5.0); Alkaline Phosphatase 94 U/L (46-116); Anion Gap 8.7 mmol/L (3-11); BUN 9 mg/dL (7-18); Bilirubin, Total 0.4 mg/dL (0.2-1.0); CO2 30.3 mmol/L (21.0-32.0); CREATININE 0.6 mg/dL (0.55-1.02); Calcium 9.5 mg/dL (8.5-10.1); Chloride 101 mmol/L (98-107); Glucose 90 mg/dL (74-106); Potassium 3.8 mmol/L (3.5-5.1); Sodium 140 mmol/L (136-145); TSH (W/Ref FT4) 0.88 uIU/mL (0.36-3.74); Total Protein 7.6 g/dL (6.4-8.2)
== END 2023-06-29 21:16 | disposition home or self-care (01) ==
LOC: NCHCN 21:15
PROVIDERS: PCP Family Medicine; Visit Provider Family Medicine
DX: E04.1 Nontoxic single thyroid nodule (principal); R74.01 Elevation of levels of liver transaminase levels; E88.09 Other disorders of plasma-protein metabolism, not elsewhere classified
CPT/HCPCS: 80053; 84443

== ENCOUNTER 2023-12-27 13:01 | Outpatient (REF) | payer OTHER, SELFPAY ==
--- OUTSIDE RECORDS SUMMARY | 2023-12-27 13:03 | XMS_ITS | Continuity of Care Document ---
Author Name Unknown Organization [facility] Address [address] [place] [phone] Phone Care Team Providers Care Fabrication Engineer Name Role Phone No Information Unavailable Unavailable [...] Diagnoses Date Provider Providers Copied on Encounter [facility] , [address] [place] [address], [id number], tel:[phone] No Information 6 No Information [address], [id number], tel:[phone] [facility] No Information 7 Nurse Office. [address] [place] [address], [facility], . tel:[phone] Offic/outpt E&m Estab Lowmod [address], [id number], tel:[phone] [facility] lipid test (chief complaint) rash (chief complaint) abnormal pap (chief complaint) Abn Pap Smear-oth SiteHematuriaAnx iety State Nos 7 No Information Offic/outpt E&m [facility] [address] [facility] , [address] [place] [address], [id number], tel:[phone] [facility] Gerd (chief complaint) Spot on Kidney (chief [...] Comments Sex Female Smoking Status No Information Sexual Orientation Don't Know Gender Identity Female Chief Complaint And Reason For Visit No Information Reason For Referral Reason For Referral No Information History Of Present Illness Encounter Date Complaint History Of Prese nt Illness No Information Functional Status Date Functional Assessmen t No Information Instructions Date Instruction Additional Infor mation No Information Assessments Type Assessment Date No Information Patient Care Teams Name Effective Dates (start - stop) Status Members No Information
--- OUTSIDE RECORDS SUMMARY | 2023-12-27 13:03 | XMS_ITS | CCD ---
Author Name Unknown Address [address] [place] [address] [phone] Organization Unknown Address [address] [place] [address] [phone] Care Team Providers Care Logistics Engineer Name Role Phone PADMA DODSON Attending Physician [phone] PADMA DODSON Rounding (Secondary) Physician [phone] Vital Signs Unknown or Not Available. Allergies Allergy Code Allergy Type Reaction Status BONIVA 016232 Drug allergy RASH Active PENICILLINS (CLASS) 0 Drug allergy Rash; Anaphyla xis Active SULFA (sulfonamide) 0 Drug allergy Hives Act lamar SUCCINYLCHOLINE 00348 Drug allergy IRREGULAR HEART Ac tive SUCCINYLCHOLINE CHLORIDE 3565 Drug allergy HEART ARR HYTHMIAS Active BEE STING 0 Allergy to substance Anaphylaxis Act lamar Procedures Unknown or Not Available. History of Immunizations Unknown or Not Available. Problems Unknown or Not Available. Results Unknown or Not Available. Active Medications Medication Code Dose Units Frequency Route Modificatio n Start Date/Time traZODone hydrochloride 100MG Oral Tablet 504766 100 MILLIGRAMS BEDTIME ORAL 7 09:49 Prescription Detail TAKE 100 MILLIGRAMS ORAL BEDTIME Medications Administered During Visit Unknown or Not Available. Encounters Encounter Diagnosis Diagnosis Code Start Date Follow-up orthopedic assessment [id number] 03/20/2023 Social History Smoking Status Code Start Date End Date Former smoker 5953809 04/25/2019 Patient Decision Aids Unknown or Not Available. Discharge Instructions You were admitted to [facility] on 03/20/2023 00:00 with a principal diagnosis of Encounter for other orthopedic aftercare You were discharged from [facility] on 03/20/2023 00:00 Should you have [...]
--- OUTSIDE RECORDS SUMMARY | 2023-12-27 13:03 | XMS_ITS | CCD ---
Author Name Unknown Address [address] [place] [address] [id number] Organization Unknown Address [address] [place] [address] [phone] Care Team Providers Care Helper Steel Fabrication Name Role Phone PADMA DODSON Attending Physician [phone] PADMA DODSON Rounding (Secondary) Physician [phone] Vital Signs Unknown or Not Available. Allergies Allergy Code Allergy Type Reaction Status BONIVA 396849 Drug allergy RASH Active PENICILLINS (CLASS) 0 Drug allergy Rash; Anaphyla xis Active SULFA (sulfonamide) 0 Drug allergy Hives Act lamar SUCCINYLCHOLINE 65204 Drug allergy IRREGULAR HEART Ac tive SUCCINYLCHOLINE CHLORIDE 3565 Drug allergy HEART ARR HYTHMIAS Active BEE STING 0 Allergy to substance Anaphylaxis Act lamar Procedures Unknown or Not Available. History of Immunizations Unknown or Not Available. Problems Unknown or Not Available. Results Unknown or Not Available. Active Medications Medication Code Dose Units Frequency Route Modificatio n Start Date/Time traZODone hydrochloride 100MG Oral Tablet 298835 100 MILLIGRAMS BEDTIME ORAL 7 09:49 Prescription Detail TAKE 100 MILLIGRAMS ORAL BEDTIME Medications Administered During Visit Unknown or Not Available. Encounters Encounter Diagnosis Diagnosis Code Start Date Follow-up orthopedic assessment [id number] 03/28/2023 Social History Smoking Status Code Start Date End Date Former smoker [id number] 04/25/2019 Patient Decision Aids Unknown or Not Available. Discharge Instructions You were admitted to [facility] on 03/28/2023 00:00 with a principal diagnosis of Encounter for other orthopedic aftercare You were discharged from [facility] on 03/28/2023 00:00 Should you have any [...]
--- OUTSIDE RECORDS SUMMARY | 2023-12-27 13:04 | XMS_ITS | CCD ---
Author Name Unknown Address [address] [place] [address] [phone] Organization Unknown Address [address] [place] [address] [phone] Care Team Providers Care Senior Benefits Manager Name Role Phone PADMA DODSON Attending Physician [phone] PADMA DODSON Rounding (Secondary) Physician [phone] Vital Signs Unknown or Not Available. Allergies Allergy Code Allergy Type Reaction Status PENICILLINS (CLASS) 0 Drug allergy Act lamar SULFA (sulfonamide) 0 Drug allergy Hives Act lamar SUCCINYLCHOLINE 12448 Drug allergy IRREGULAR HEART Ac tive Procedures Unknown or Not Available. History of Immunizations Unknown or Not Available. Problems Unknown or Not Available. Results Unknown or Not Available. Active Medications Medication Code Dose Units Frequency Route Modificatio n Start Date/Time traZODone hydrochloride 100MG Oral Tablet 608669 100 MILLIGRAMS BEDTIME ORAL 7 09:49 Prescription Detail TAKE 100 MILLIGRAMS ORAL BEDTIME Medications Administered During Visit Unknown or Not Available. Encounters Encounter Diagnosis Diagnosis Code Start Date Tailor's bunion of left foot [id number] Social History Smoking Status Code Start Date End Date Former smoker [id number] 04/25/2019 Patient Decision Aids Unknown or Not Available. Discharge Instructions You were admitted to [facility] on 03/07/2023 00:00 with a principal diagnosis of Bunionette of left foot You were discharged from [facility] on 03/07/2023 00:00 Should you have [...]
--- OUTSIDE RECORDS SUMMARY | 2023-12-27 13:04 | XMS_ITS | CCD ---
Author Name Unknown Address [address] [place] [address] [id number] Organization Unknown Address [address] [place] [address] [phone] Care Team Providers Care Library Services Dean Name Role Phone PADMA DODSON Attending Physician [phone] PADMA DODSON Rounding (Secondary) Physician [phone] Vital Signs Unknown or Not Available. Allergies Allergy Code Allergy Type Reaction Status PENICILLINS (CLASS) 0 Drug allergy Act lamar SULFA (sulfonamide) 0 Drug allergy Hives Act lamar SUCCINYLCHOLINE 20612 Drug allergy IRREGULAR HEART Ac tive Procedures Unknown or Not Available. History of Immunizations Unknown or Not Available. Problems Unknown or Not Available. Results Unknown or Not Available. Active Medications Medication Code Dose Units Frequency Route Modificatio n Start Date/Time traZODone hydrochloride 100MG Oral Tablet 957940 100 MILLIGRAMS BEDTIME ORAL 7 09:49 Prescription Detail TAKE 100 MILLIGRAMS ORAL BEDTIME Medications Administered During Visit Unknown or Not Available. Encounters Encounter Diagnosis Diagnosis Code Start Date Non-traumatic tendon rupture [id number] Social History Smoking Status Code Start Date End Date Former smoker [id number] 04/25/2019 Patient Decision Aids Unknown or Not Available. Discharge Instructions You were admitted to [facility] on 11/02/2022 08:56 with a principal diagnosis of Spontaneous rupture of other tendons, left ankle and foot You were discharged from [facility] on 11/02/2022 00:00 Should you have any [...]
--- OUTSIDE RECORDS SUMMARY | 2023-12-27 13:04 | XMS_ITS | CCD ---
Author Name Unknown Address [address] [place] [address] [phone] Organization Unknown Address [address] [place] [address] [phone] Care Team Providers Care Client Services Assistant Name Role Phone PADMA DODSON Attending Physician [phone] PADMA DODSON Rounding (Secondary) Physician [phone] Vital Signs Unknown or Not Available. Allergies Allergy Code Allergy Type Reaction Status PENICILLINS (CLASS) 0 Drug allergy Act lamar SULFA (sulfonamide) 0 Drug allergy Hives Act lamar SUCCINYLCHOLINE 60370 Drug allergy IRREGULAR HEART Ac tive Procedures Unknown or Not Available. History of Immunizations Unknown or Not Available. Problems Unknown or Not Available. Results Unknown or Not Available. Active Medications Medication Code Dose Units Frequency Route Modificatio n Start Date/Time traZODone hydrochloride 100MG Oral Tablet 933261 100 MILLIGRAMS BEDTIME ORAL 7 09:49 Prescription Detail TAKE 100 MILLIGRAMS ORAL BEDTIME Medications Administered During Visit Unknown or Not Available. Encounters Encounter Diagnosis Diagnosis Code Start Date Other hammer toe(s) (acquired), left foot M2042 02/15/2023 Social History Smoking Status Code Start Date End Date Former smoker [id number] 04/25/2019 Patient Decision Aids Unknown or Not Available. Discharge Instructions You were admitted to [facility] on 02/15/2023 11:03 with a principal diagnosis of Other hammer toe(s) (acquired), left foot You were discharged from [facility] on 02/15/2023 00:00 Should you have any [...]
--- OUTSIDE RECORDS SUMMARY | 2023-12-27 13:04 | XMS_ITS | CCD ---
Author Name Unknown Address [address] [place] [address] [id number] Organization Unknown Address [address] [place] [address] [phone] Care Team Providers Care Business Analyst Manager Name Role Phone IMTIAZ BHATIA Attending Physician [phone] Vital Signs Unknown or Not Available. Allergies Allergy Code Allergy Type Reaction Status PENICILLINS (CLASS) 0 Drug allergy Act lamar SULFA (sulfonamide) 0 Drug allergy Hives Act lamar SUCCINYLCHOLINE 78881 Drug allergy IRREGULAR HEART Ac tive Procedures Unknown or Not Available. History of Immunizations Unknown or Not Available. Problems Unknown or Not Available. Results Unknown or Not Available. Active Medications Medication Code Dose Units Frequency Route Modificatio n Start Date/Time traZODone hydrochloride 100MG Oral Tablet 933719 100 MILLIGRAMS BEDTIME ORAL 7 09:49 Prescription Detail TAKE 100 MILLIGRAMS ORAL BEDTIME Medications Administered During Visit Unknown or Not Available. Encounters Encounter Diagnosis Diagnosis Code Start Date Calculus of gallbladder with out cholecystitis without obstruction K8020 10/25/2022 Social History Smoking Status Code Start Date End Date Former smoker [id number] 04/25/2019 Patient Decision Aids Unknown or Not Available. Discharge Instructions You were admitted to [facility] on 10/25/2022 10:06 with a principal diagnosis of Calculus of gallbladder without cholecystitis without obstruction You were discharged from [facility] on 10/25/2022 10:06 Should you have any questions prior to discharge, please contact a member of your healthcare team. If you have left the hospital and have any questions, please contact your primary care physician. Chief Complaint and Reason For Visit Chief Complaint Date of Onset ABD PAIN, ELEVATED LIVER TRANSAMINASE Function Status Unknown or Not Available. Plan of Care Unknown or Not Available. Referral/Transition of Care Unknown or Not Available.
--- OUTSIDE RECORDS SUMMARY | 2023-12-27 13:04 | XMS_ITS | CCD ---
Author Name Unknown Address [address] [place] [address] [phone] Organization Unknown Address [address] [place] [address] [phone] Care Team Providers Care Move Coordinator Name Role Phone PADMA DODSON Attending Physician [phone] PADMA DODSON Rounding (Secondary) Physician [phone] Vital Signs Unknown or Not Available. Allergies Allergy Code Allergy Type Reaction Status PENICILLINS (CLASS) 0 Drug allergy Act lamar SULFA (sulfonamide) 0 Drug allergy Hives Act lamar SUCCINYLCHOLINE 49518 Drug allergy IRREGULAR HEART Ac tive Procedures Unknown or Not Available. History of Immunizations Unknown or Not Available. Problems Unknown or Not Available. Results Unknown or Not Available. Active Medications Medication Code Dose Units Frequency Route Modificatio n Start Date/Time traZODone hydrochloride 100MG Oral Tablet 533641 100 MILLIGRAMS BEDTIME ORAL 7 09:49 Prescription Detail TAKE 100 MILLIGRAMS ORAL BEDTIME Medications Administered During Visit Unknown or Not Available. Encounters Encounter Diagnosis Diagnosis Code Start Date Enthesopathy of left foot [id number] 08/20 Social History Smoking Status Code Start Date End Date Former smoker [id number] 04/25/2019 Patient Decision Aids Unknown or Not Available. Discharge Instructions You were admitted to [facility] on 09/12/2022 09:40 with a principal diagnosis of Other enthesopathy of left foot and ankle You were discharged from [facility] on 09/12/2022 00:00 Should you have [...]
--- OUTSIDE RECORDS SUMMARY | 2023-12-27 13:04 | XMS_ITS | CCD ---
Author Name Unknown Address [address] [place] [address] [id number] Organization Unknown Address [address] [place] [address] [phone] Care Team Providers Care Neck Skewer Name Role Phone PADMA DODSON Attending Physician [phone] Vital Signs Vital Sign Value Unit Date/Time [...] Allergy Code Allergy Type Reaction Status BONIVA 151789 Drug allergy RASH Active PENICILLINS (CLASS) 0 Drug allergy Rash; Anaphyla xis Active SULFA (sulfonamide) 0 Drug allergy Hives Act lamar SUCCINYLCHOLINE 93802 Drug allergy IRREGULAR HEART Ac tive SUCCINYLCHOLINE CHLORIDE 3565 Drug allergy HEART ARR HYTHMIAS Active BEE STING 0 Allergy to substance Anaphylaxis Act lamar Procedures Procedure Code Procedure Type Date Correction, Hammertoe 73938 CPT 2022 Ostectomy, Partial Excision, 5th Metatarsal Head (Bunionette) (Sep Proc) 98591 CPT 03/14/2023 Anesthesia, Open Proc, Bones , Lower Leg/Ankle/Foot; NOS 47013 CPT 03/14/2023 History of Immunizations Unknown or [...] 2028-9 28 mmol/L L=22 H=34 ANION GAP 79775-5 8.2 mmol/L CALCIUM SERUM 68499-7 8.8 mg/dL L=8.2 H=10. 2 AGE 62 years eGFR (non-Afr.Amer.) 37756-2 97 mL/min eGFR (Afr-Austrian) 91521-4 118 mL/min Active Medications Medications Administered During [...] Code Start Date End Date Former smoker [id number] 04/25/2019 Patient Decision Aids Unknown or Not Available. Discharge Instructions You were admitted to [facility] on 03/14/2023 06:19 with a principal diagnosis of Other hammer toe(s) (acquired), left foot You had the following procedures done:Correction, HammertoeOstectomy, Partial Excision, 5th Metatarsal Head (Bunionette) (Sep Proc)Anesthesia, Open Proc, Bones, Lower Leg/Ankle/Foot; NOS You had the following tests done:BASIC METABOLIC PANEL (BMP) You were discharged from [facility] on 03/14/2023 09:53 Should you have any [...]
--- OUTSIDE RECORDS SUMMARY | 2023-12-27 13:04 | XMS_ITS | CCD ---
Author Name Unknown Address [address] [place] [address] [id number] Organization Unknown Address [address] [place] [address] [phone] Care Team Providers Care Java Development Team Lead Name Role Phone IMTIAZ BHATIA Attending Physician [phone] Vital Signs Unknown or Not Available. Allergies Allergy Code Allergy Type Reaction Status PENICILLINS (CLASS) 0 Drug allergy Act lamar SULFA (sulfonamide) 0 Drug allergy Hives Act lamar SUCCINYLCHOLINE 37961 Drug allergy IRREGULAR HEART Ac tive Procedures Unknown or Not Available. History of Immunizations Unknown or Not Available. Problems Unknown or Not Available. Results Unknown or Not Available. Active Medications Medication Code Dose Units Frequency Route Modificatio n Start Date/Time traZODone hydrochloride 100MG Oral Tablet 431975 100 MILLIGRAMS BEDTIME ORAL 7 09:49 Prescription Detail TAKE 100 MILLIGRAMS ORAL BEDTIME Medications Administered During Visit Unknown or Not Available. Encounters Encounter Diagnosis Diagnosis Code Start Date Bilateral primary osteoarthritis of knee M170 12/27/2022 Social History Smoking Status Code Start Date End Date Former smoker [id number] 04/25/2019 Patient Decision Aids Unknown or Not Available. Discharge Instructions You were admitted to [facility] on 12/27/2022 12:26 with a principal diagnosis of Bilateral primary osteoarthritis of knee You were discharged from [facility] on 01/09/2023 10:02 Should you have any [...]
--- OUTSIDE RECORDS SUMMARY | 2023-12-27 13:05 | XMS_ITS | CCD ---
Author Name Unknown Address [address] [place] [address] [phone] Organization Unknown Address [address] [place] [address] [phone] Care Team Providers Care Materials Inspector Name Role Phone PADMA DODSON Attending Physician [phone] PADMA DODSON Rounding (Secondary) Physician [phone] Vital Signs Unknown or Not Available. Allergies Allergy Code Allergy Type Reaction Status PENICILLINS (CLASS) 0 Drug allergy Act lamar SULFA (sulfonamide) 0 Drug allergy Hives Act lamar SUCCINYLCHOLINE 22467 Drug allergy IRREGULAR HEART Ac tive Procedures Unknown or Not Available. History of Immunizations Unknown or Not Available. Problems Unknown or Not Available. Results Unknown or Not Available. Active Medications Medication Code Dose Units Frequency Route Modificatio n Start Date/Time traZODone hydrochloride 100MG Oral Tablet 706840 100 MILLIGRAMS BEDTIME ORAL 7 09:49 Prescription Detail TAKE 100 MILLIGRAMS ORAL BEDTIME Medications Administered During Visit Unknown or Not Available. Encounters Encounter Diagnosis Diagnosis Code Start Date Metatarsalgia, left foot M7742 022 Social History Smoking Status Code Start Date End Date Former smoker [id number] 04/25/2019 Patient Decision Aids Unknown or Not Available. Discharge Instructions You were admitted to [facility] on 02/22/2022 12:57 with a principal diagnosis of Metatarsalgia, left foot You were discharged from [facility] on 02/22/2022 00:00 Should you have [...]
--- OUTSIDE RECORDS SUMMARY | 2023-12-27 13:05 | XMS_ITS | CCD ---
Author Name Unknown Address [address] [place] [address] [phone] Organization Unknown Address [address] [place] [address] [phone] Care Team Providers Care Magnet Maker Name Role Phone ROSA MARIA ROJAS Attending Physician [phone] ROSA MARIA ROJAS Rounding (Secondary) Physician [phone] Vital Signs Unknown or Not Available. Allergies Allergy Code Allergy Type Reaction Status PENICILLINS (CLASS) 0 Drug allergy Act lamar SULFA (sulfonamide) 0 Drug allergy Hives Act lamar SUCCINYLCHOLINE 18017 Drug allergy IRREGULAR HEART Ac tive Procedures Unknown or Not Available. History of Immunizations Unknown or Not Available. Problems Unknown or Not Available. Results Unknown or Not Available. Active Medications Medication Code Dose Units Frequency Route Modificatio n Start Date/Time traZODone hydrochloride 100MG Oral Tablet 520109 100 MILLIGRAMS BEDTIME ORAL 7 09:49 Prescription Detail TAKE 100 MILLIGRAMS ORAL BEDTIME Medications Administered During Visit Unknown or Not Available. Encounters Encounter Diagnosis Diagnosis Code Start Date Idiopathic osteoarthritis [id number] 2021 Social History Smoking Status Code Start Date End Date Former smoker 0248848 04/25/2019 Patient Decision Aids Unknown or Not Available. Discharge Instructions You were admitted to [facility] on 12/28/2021 12:42 with a principal diagnosis of Unilateral primary osteoarthritis of first carpometacarpal joint, right hand You were discharged from [facility] on 12/28/2021 00:00 Should you [...]
--- OUTSIDE RECORDS SUMMARY | 2023-12-27 13:05 | XMS_ITS | CCD ---
Author Name Unknown Address [address] [place] [address] [phone] Organization Unknown Address [address] [place] [address] [phone] Care Team Providers Care Counselling Psychologist Name Role Phone PATIENCE BURDEN Attending Physician [phone] PATIENCE BURDEN Rounding (Secondary) Physician [phone] Vital Signs Unknown or Not Available. Allergies Allergy Code Allergy Type Reaction Status PENICILLINS (CLASS) 0 Drug allergy Act lamar SULFA (sulfonamide) 0 Drug allergy Hives Act lamar SUCCINYLCHOLINE 94679 Drug allergy IRREGULAR HEART Ac tive Procedures Unknown or Not Available. History of Immunizations Unknown or Not Available. Problems Unknown or Not Available. Results Unknown or Not Available. Active Medications Medication Code Dose Units Frequency Route Modificatio n Start Date/Time traZODone hydrochloride 100MG Oral Tablet 923616 100 MILLIGRAMS BEDTIME ORAL 7 09:49 Prescription Detail TAKE 100 MILLIGRAMS ORAL BEDTIME Medications Administered During Visit Unknown or Not Available. Encounters Encounter Diagnosis Diagnosis Code Start Date Canceled operative procedure [id number] 02/2022 Social History Smoking Status Code Start Date End Date Former smoker 5280850 04/25/2019 Patient Decision Aids Unknown or Not Available. Discharge Instructions You were admitted to [facility] on 06/22/2022 10:38 with a principal diagnosis of Procedure and treatment not carried out, unspecified reason You were discharged from [facility] on 06/22/2022 10:56 Should you [...]
--- OUTSIDE RECORDS SUMMARY | 2023-12-27 13:05 | XMS_ITS | CCD ---
Author Name Unknown Address [address] [place] [address] [phone] Organization Unknown Address [address] [place] [address] [phone] Care Team Providers Care Field Mechanic/Site Lead Name Role Phone PADMA DODSON Attending Physician [phone] PADMA DODSON Rounding (Secondary) Physician [phone] Vital Signs Unknown or Not Available. Allergies Allergy Code Allergy Type Reaction Status PENICILLINS (CLASS) 0 Drug allergy Act lamar SULFA (sulfonamide) 0 Drug allergy Hives Act lamar SUCCINYLCHOLINE 73992 Drug allergy IRREGULAR HEART Ac tive Procedures Unknown or Not Available. History of Immunizations Unknown or Not Available. Problems Unknown or Not Available. Results Unknown or Not Available. Active Medications Medication Code Dose Units Frequency Route Modificatio n Start Date/Time traZODone hydrochloride 100MG Oral Tablet 553927 100 MILLIGRAMS BEDTIME ORAL 7 09:49 Prescription Detail TAKE 100 MILLIGRAMS ORAL BEDTIME Medications Administered During Visit Unknown or Not Available. Encounters Encounter Diagnosis Diagnosis Code Start Date Refusal of treatment by patient [id number] 03/01/2022 Social History Smoking Status Code Start Date End Date Former smoker 5533721 04/25/2019 Patient Decision Aids Unknown or Not Available. Discharge Instructions You were admitted to [facility] on 03/01/2022 12:14 with a principal diagnosis of Procedure and treatment not carried out because of patient's decision for unspecified reasons You were discharged from [facility] on 03/01/2022 13:27 Should you have any [...]
--- OUTSIDE RECORDS SUMMARY | 2023-12-27 13:05 | XMS_ITS | CCD ---
Author Name Unknown Address [address] [place] [address] [phone] Organization Unknown Address [address] [place] [address] [phone] Care Team Providers Care Crayon Painter Name Role Phone CARMEN FELIX Attending Physician [phone] CARMEN FELIX Rounding (Secondary) Physician [phone] Vital Signs Unknown or Not Available. Allergies Allergy Code Allergy Type Reaction Status PENICILLINS (CLASS) 0 Drug allergy Act lamar SULFA (sulfonamide) 0 Drug allergy Hives Act lamar SUCCINYLCHOLINE 02779 Drug allergy IRREGULAR HEART Ac tive Procedures Procedure Code Procedure Type Date Arthrocentesis Aspir&/[place] [address] CPT 08/16/2022 History of Immunizations Unknown or Not Available. Problems Unknown or Not Available. Results Unknown or Not Available. Active Medications Medication Code Dose Units Frequency Route Modificatio n Start Date/Time traZODone hydrochloride 100MG Oral Tablet 135671 100 MILLIGRAMS BEDTIME ORAL 7 09:49 Prescription Detail TAKE 100 MILLIGRAMS ORAL BEDTIME Medications Administered During Visit Unknown or Not Available. Encounters Encounter Diagnosis Diagnosis Code Start Date Bilateral primary osteoarthritis of knee M170 08/16/2022 Social History Smoking Status Code Start Date End Date Former smoker 1941986 04/25/2019 Patient Decision Aids Unknown or Not Available. Discharge Instructions You were admitted to [facility] on 08/16/2022 15:04 with a principal diagnosis of Bilateral primary osteoarthritis of knee You had the following procedures done:Arthrocentesis Aspir&/Inj Major Jt/Bursa w/o US You were discharged from [facility] on 08/16/2022 00:00 Should you have any [...]
--- OUTSIDE RECORDS SUMMARY | 2023-12-27 13:05 | XMS_ITS | CCD ---
Author Name Unknown Address [address] [place] [address] [id number] Organization Unknown Address [address] [place] [address] [phone] Care Team Providers Care Shell Molding Roller Blast Operator Name Role Phone PADMA DODSON Attending Physician [phone] PADMA DODSON Rounding (Secondary) Physician [phone] Vital Signs Unknown or Not Available. Allergies Allergy Code Allergy Type Reaction Status PENICILLINS (CLASS) 0 Drug allergy Act lamar SULFA (sulfonamide) 0 Drug allergy Hives Act lamar SUCCINYLCHOLINE 90743 Drug allergy IRREGULAR HEART Ac tive Procedures Unknown or Not Available. History of Immunizations Unknown or Not Available. Problems Unknown or Not Available. Results Unknown or Not Available. Active Medications Medication Code Dose Units Frequency Route Modificatio n Start Date/Time traZODone hydrochloride 100MG Oral Tablet 237403 100 MILLIGRAMS BEDTIME ORAL 7 09:49 Prescription Detail TAKE 100 MILLIGRAMS ORAL BEDTIME Medications Administered During Visit Unknown or Not Available. Encounters Encounter Diagnosis Diagnosis Code Start Date Metatarsalgia, left foot M7742 022 Social History Smoking Status Code Start Date End Date Former smoker 8110026 04/25/2019 Patient Decision Aids Unknown or Not Available. Discharge Instructions You were admitted to [facility] on 02/07/2022 10:15 with a principal diagnosis of Metatarsalgia, left foot You were discharged from [facility] on 02/07/2022 00:00 Should you have [...]
--- OUTSIDE RECORDS SUMMARY | 2023-12-27 13:06 | XMS_ITS | CCD ---
Author Name Unknown Address [address] [place] [address] [phone] Organization Unknown Address [address] [place] [address] [phone] Care Team Providers Care Merchandise Displayer Name Role Phone PATIENCE BURDEN Attending Physician [phone] PATIENCE BURDEN Rounding (Secondary) Physician [phone] Vital Signs Unknown or Not Available. Allergies Allergy Code Allergy Type Reaction Status PENICILLINS (CLASS) 0 Drug allergy Act lamar SULFA (sulfonamide) 0 Drug allergy Hives Act lamar SUCCINYLCHOLINE 30355 Drug allergy IRREGULAR HEART Ac tive Procedures Unknown or Not Available. History of Immunizations Unknown or Not Available. Problems Unknown or Not Available. Results Unknown or Not Available. Active Medications Medication Code Dose Units Frequency Route Modificatio n Start Date/Time traZODone hydrochloride 100MG Oral Tablet [id number] 100 MILLIGRAMS BEDTIME ORAL 7 09:49 Prescription Detail TAKE 100 MILLIGRAMS ORAL BEDTIME Medications Administered During Visit Unknown or Not Available. Encounters Encounter Diagnosis Diagnosis Code Start Date Fracture of upper end of humerus [id number] 12/13/2021 Social History Smoking Status Code Start Date End Date Former smoker [id number] 04/25/2019 Patient Decision Aids Unknown or Not Available. Discharge Instructions You were admitted to [facility] on 12/13/2021 14:45 with a principal diagnosis of Unspecified fracture of upper end of left humerus, subsequent encounter for fracture with routine healing You were discharged from [facility] on 12/13/2021 00:00 Should you have any questions prior [...]
--- OUTSIDE RECORDS SUMMARY | 2023-12-27 13:06 | XMS_ITS | CCD ---
Author Name Unknown Address [address] [place] [address] [phone] Organization Unknown Address [address] [place] [address] [phone] Care Team Providers Care Business Systems Lead Name Role Phone KISHAN KUHN Attending Physician [phone] KISHAN KUHN (Secondary) Physician [phone] Vital Signs Unknown or Not Available. Allergies Allergy Code Allergy Type Reaction Status PENICILLINS (CLASS) 0 Drug allergy Act lamar SULFA (sulfonamide) 0 Drug allergy Hives Act lamar SUCCINYLCHOLINE 29758 Drug allergy IRREGULAR HEART Ac tive Procedures Unknown or Not Available. History of Immunizations Unknown or Not Available. Problems Unknown or Not Available. Results Unknown or Not Available. Active Medications Medication Code Dose Units Frequency Route Modificatio n Start Date/Time traZODone hydrochloride 100MG Oral Tablet [id number] 100 MILLIGRAMS BEDTIME ORAL 7 09:49 Prescription Detail TAKE 100 MILLIGRAMS ORAL BEDTIME Medications Administered During Visit Unknown or Not Available. Encounters Encounter Diagnosis Diagnosis Code Start Date Idiopathic osteoarthritis [id number] 2020 Social History Smoking Status Code Start Date End Date Former smoker [id number] 04/25/2019 Patient Decision Aids Unknown or Not Available. Discharge Instructions You were admitted to [facility] on 11/04/2021 14:17 with a principal diagnosis of Bilateral primary osteoarthritis of knee You were discharged from [facility] on 11/04/2021 00:00 Should you have any questions prior [...]
--- OUTSIDE RECORDS SUMMARY | 2023-12-27 13:06 | XMS_ITS | CCD ---
Author Name Unknown Address [address] [place] [address] [phone] Organization Unknown Address [address] [place] [address] [phone] Care Team Providers Care Leaf Fat Scraper Name Role Phone AMIRAH MERLOS Attending Physician [phone] AMIRAH MERLOS Rounding (Secondary) Physic elver [phone] Vital Signs Unknown or Not Available. Allergies Allergy Code Allergy Type Reaction Status PENICILLINS (CLASS) 0 Drug allergy Act lamar SULFA (sulfonamide) 0 Drug allergy Hives Act lamar SUCCINYLCHOLINE 93371 Drug allergy IRREGULAR HEART Ac tive Procedures Unknown or Not Available. History of Immunizations Unknown or Not Available. Problems Unknown or Not Available. Results Unknown or Not Available. Active Medications Medication Code Dose Units Frequency Route Modificatio n Start Date/Time traZODone hydrochloride 100MG Oral Tablet 469815 100 MILLIGRAMS BEDTIME ORAL 7 09:49 Prescription Detail TAKE 100 MILLIGRAMS ORAL BEDTIME Medications Administered During Visit Unknown or Not Available. Encounters Encounter Diagnosis Diagnosis Code Start Date Nondisplaced fracture of hea d of right radius, subsequent encounter for closed fracture with routine healing [id number] 01/2021 Social History Smoking Status Code Start Date End Date Former smoker [id number] 04/25/2019 Patient Decision Aids Unknown or Not Available. Discharge Instructions You were admitted to [facility] on 10/21/2021 14:10 with a principal diagnosis of Nondisplaced fracture of head of right radius, subsequent encounter for closed fracture with routine healing You were discharged from [facility] on 10/21/2021 00:00 Should you have any [...]
--- OUTSIDE RECORDS SUMMARY | 2023-12-27 13:06 | XMS_ITS | CCD ---
Author Name Unknown Address [address] [place] [address] [id number] Organization Unknown Address [address] [place] [address] [phone] Care Team Providers Care Case Supervisor Name Role Phone ROSA MARIA ROJAS Attending Physician [phone] Vital Signs Unknown or Not Available. Allergies Allergy Code Allergy Type Reaction Status PENICILLINS (CLASS) 0 Drug allergy Act lamar SULFA (sulfonamide) 0 Drug allergy Hives Act lamar SUCCINYLCHOLINE 42881 Drug allergy IRREGULAR HEART Ac tive Procedures Unknown or Not Available. History of Immunizations Unknown or Not Available. Problems Unknown or Not Available. Results Unknown or Not Available. Active Medications Medication Code Dose Units Frequency Route Modificatio n Start Date/Time traZODone hydrochloride 100MG Oral Tablet 178308 100 MILLIGRAMS BEDTIME ORAL 7 09:49 Prescription Detail TAKE 100 MILLIGRAMS ORAL BEDTIME Medications Administered During Visit Unknown or Not Available. Encounters Encounter Diagnosis Diagnosis Code Start Date Pain in left shoulder [id number] 12/02/2021 Social History Smoking Status Code Start Date End Date Former smoker [id number] 04/25/2019 Patient Decision Aids Unknown or Not Available. Discharge Instructions You were admitted to [facility] on 12/02/2021 13:35 with a principal diagnosis of Pain in left shoulder You were discharged from [facility] on 02/28/2022 15:41 Should you [...]
--- OUTSIDE RECORDS SUMMARY | 2023-12-27 13:06 | XMS_ITS | CCD ---
Author Name Unknown Address [address] [place] [address] [phone] Organization Unknown Address [address] [place] [address] [phone] Care Team Providers Care Chief Lock Operator Name Role Phone ANÍBAL MACIEL Attending Physician [phone] Vital Signs Unknown or Not Available. Allergies Allergy Code Allergy Type Reaction Status PENICILLINS (CLASS) 0 Drug allergy Act lamar SULFA (sulfonamide) 0 Drug allergy Hives Act lamar SUCCINYLCHOLINE 24997 Drug allergy IRREGULAR HEART Ac tive Procedures Unknown or Not Available. History of Immunizations Unknown or Not Available. Problems Unknown or Not Available. Results Unknown or Not Available. Active Medications Medication Code Dose Units Frequency Route Modificatio n Start Date/Time traZODone hydrochloride 100MG Oral Tablet 355994 100 MILLIGRAMS BEDTIME ORAL 7 09:49 Prescription Detail TAKE 100 MILLIGRAMS ORAL BEDTIME Medications Administered During Visit Unknown or Not Available. Encounters Encounter Diagnosis Diagnosis Code Start Date Screening mammography [id number] 11/30/2021 Social History Smoking Status Code Start Date End Date Former smoker [id number] 04/25/2019 Patient Decision Aids Unknown or Not Available. Discharge Instructions You were admitted to [facility] on 11/30/2021 10:35 with a principal diagnosis of Encounter for screening mammogram for malignant neoplasm of breast You were discharged from [facility] on 11/30/2021 10:35 Should you have any [...]
--- OUTSIDE RECORDS SUMMARY | 2023-12-27 13:06 | XMS_ITS | CCD ---
Author Name Unknown Address [address] [place] [address] [phone] Organization Unknown Address [address] [place] [address] [phone] Care Team Providers Care Poultry Slaughterer Name Role Phone KISHAN KUHN Attending Physician [phone] KISHAN KUHN (Secondary) Physician [phone] Vital Signs Unknown or Not Available. Allergies Allergy Code Allergy Type Reaction Status PENICILLINS (CLASS) 0 Drug allergy Act lamar SULFA (sulfonamide) 0 Drug allergy Hives Act lamar SUCCINYLCHOLINE 57414 Drug allergy IRREGULAR HEART Ac tive Procedures Unknown or Not Available. History of Immunizations Unknown or Not Available. Problems Unknown or Not Available. Results Unknown or Not Available. Active Medications Medication Code Dose Units Frequency Route Modificatio n Start Date/Time traZODone hydrochloride 100MG Oral Tablet 000564 100 MILLIGRAMS BEDTIME ORAL 7 09:49 Prescription Detail TAKE 100 MILLIGRAMS ORAL BEDTIME Medications Administered During Visit Unknown or Not Available. Encounters Encounter Diagnosis Diagnosis Code Start Date Idiopathic osteoarthritis [id number] 2020 Social History Smoking Status Code Start Date End Date Former smoker [id number] 04/25/2019 Patient Decision Aids Unknown or Not Available. Discharge Instructions You were admitted to [facility] on 10/21/2021 14:08 with a principal diagnosis of Bilateral primary osteoarthritis of knee You were discharged from [facility] on 10/21/2021 00:00 Should you have [...]
--- OUTSIDE RECORDS SUMMARY | 2023-12-27 13:06 | XMS_ITS | CCD ---
Author Name Unknown Address [address] [place] [address] [phone] Organization Unknown Address [address] [place] [address] [phone] Care Team Providers Care Negotiator Sales Name Role Phone KISHAN KUHN Attending Physician [phone] KISHAN KUHN (Secondary) Physician [phone] Vital Signs Unknown or Not Available. Allergies Allergy Code Allergy Type Reaction Status PENICILLINS (CLASS) 0 Drug allergy Act lamra SULFA (sulfonamide) 0 Drug allergy Hives Act lamar SUCCINYLCHOLINE 32788 Drug allergy IRREGULAR HEART Ac tive Procedures Unknown or Not Available. History of Immunizations Unknown or Not Available. Problems Unknown or Not Available. Results Unknown or Not Available. Active Medications Medication Code Dose Units Frequency Route Modificatio n Start Date/Time traZODone hydrochloride 100MG Oral Tablet [id number] 100 MILLIGRAMS BEDTIME ORAL 7 09:49 Prescription Detail TAKE 100 MILLIGRAMS ORAL BEDTIME Medications Administered During Visit Unknown or Not Available. Encounters Encounter Diagnosis Diagnosis Code Start Date Idiopathic osteoarthritis [id number] 2020 Social History Smoking Status Code Start Date End Date Former smoker [id number] 04/25/2019 Patient Decision Aids Unknown or Not Available. Discharge Instructions You were admitted to on 11/16/2021 14:16 with a principal diagnosis of Bilateral primary osteoarthritis of knee You were discharged from on 11/16/2021 00:00 Should you have any [...]
--- OUTSIDE RECORDS SUMMARY | 2023-12-27 13:06 | XMS_ITS | CCD ---
Author Name Unknown Address [address] [place] [address] [phone] Organization Unknown Address [address] [place] [address] [phone] Care Team Providers Care Pest Control Service Technician Name Role Phone ROSA MARIA ROJAS Attending Physician [phone] ROSA MARIA ROJAS Rounding (Secondary) Physician [phone] Vital Signs Unknown or Not Available. Allergies Allergy Code Allergy Type Reaction Status PENICILLINS (CLASS) 0 Drug allergy Act lamar SULFA (sulfonamide) 0 Drug allergy Hives Act lamar SUCCINYLCHOLINE 53551 Drug allergy IRREGULAR HEART Ac tive Procedures Unknown or Not Available. History of Immunizations Unknown or Not Available. Problems Unknown or Not Available. Results Unknown or Not Available. Active Medications Medication Code Dose Units Frequency Route Modificatio n Start Date/Time traZODone hydrochloride 100MG Oral Tablet 306704 100 MILLIGRAMS BEDTIME ORAL 7 09:49 Prescription Detail TAKE 100 MILLIGRAMS ORAL BEDTIME Medications Administered During Visit Unknown or Not Available. Encounters Encounter Diagnosis Diagnosis Code Start Date Idiopathic osteoarthritis [id number] 2020 Social History Smoking Status Code Start Date End Date Former smoker [id number] 04/25/2019 Patient Decision Aids Unknown or Not Available. Discharge Instructions You were admitted to [facility] on 11/16/2021 11:27 with a principal diagnosis of Unilateral primary osteoarthritis of first carpometacarpal joint, right hand You were discharged from [facility] [...]
--- OUTSIDE RECORDS SUMMARY | 2023-12-27 13:06 | XMS_ITS | CCD ---
Author Name Unknown Address [address] [place], [place] [id number] Organization Unknown Address [address] [place] [address] [phone] Care Team Providers Care Catalyst Operator Name Role Phone ROSEANN VERDIN Attending Physician [phone] ROSEANN VERDIN Er Physician [phone] ARABELLA Troncoso Registered Nurse [phone] GALEXANDRA Matos Registered Nurse [phone] GROSA MARIA Matos Registered Nurse [phone] Vital Signs Vital Sign Value Unit Date/Time [...] 0 Drug allergy Hives Act lamar SUCCINYLCHOLINE 89485 Drug allergy IRREGULAR HEART Ac tive Procedures Procedure Code Procedure Type Date Emergency Department Visit Moderate Severity 33156 CPT 09/29/2021 History of Immunizations Unknown or [...] right radius, initial encounter for closed fracture [id number] 09/29/2021 Social History Smoking Status Code Start Date End Date Former smoker [id number] 04/25/2019 Patient Decision Aids Unknown or Not Available. Discharge Instructions You were admitted to [facility] on 09/29/2021 17:54 with a principal diagnosis of Displaced fracture of head of right radius, initial encounter for closed fracture You had the following procedures done:Emergency Department Visit Moderate Severity You were discharged from [facility] on 09/29/2021 19:40 Should you have any [...]
--- OUTSIDE RECORDS SUMMARY | 2023-12-27 13:07 | XMS_ITS | CCD ---
Author Name Unknown Address [address] [place] [address] [phone] Organization Unknown Address [address] [place] [address] [phone] Care Team Providers Care Commercial Roofing Estimator Name Role Phone AMIRAH MERLOS Attending Physician [phone] AMIRAH MERLOS Rounding (Secondary) Physic elver [phone] Vital Signs Unknown or Not Available. Allergies Allergy Code Allergy Type Reaction Status PENICILLINS (CLASS) 0 Drug allergy Act lamar SULFA (sulfonamide) 0 Drug allergy Hives Act lamar SUCCINYLCHOLINE 95791 Drug allergy IRREGULAR HEART Ac tive Procedures Unknown or Not Available. History of Immunizations Unknown or Not Available. Problems Unknown or Not Available. Results Unknown or Not Available. Active Medications Medication Code Dose Units Frequency Route Modificatio n Start Date/Time traZODone hydrochloride 100MG Oral Tablet 700887 100 MILLIGRAMS BEDTIME ORAL 7 09:49 Prescription Detail TAKE 100 MILLIGRAMS ORAL BEDTIME Medications Administered During Visit Unknown or Not Available. Encounters Encounter Diagnosis Diagnosis Code Start Date Nondisplaced fracture of hea d of right radius, initial encounter for closed fracture [id number] 10/03/2021 Social History Smoking Status Code Start Date End Date Former smoker [id number] 04/25/2019 Patient Decision Aids Unknown or Not Available. Discharge Instructions You were admitted to [facility] on 10/03/2021 09:41 with a principal diagnosis of Nondisplaced fracture of head of right radius, initial encounter for closed fracture You were discharged from [facility] on 10/03/2021 00:00 Should you have any [...]
--- OUTSIDE RECORDS SUMMARY | 2023-12-27 13:07 | XMS_ITS | CCD ---
Author Name Unknown Address [address] [place] [address] [phone] Organization Unknown Address [address] [place] [address] [phone] Care Team Providers Care Elastic Attacher Overlock Name Role Phone PATIENCE BURDEN NP Attending Physician [phone] Vital Signs Unknown or Not Available. Allergies Allergy Code Allergy Type Reaction Status PENICILLINS (CLASS) 0 Drug allergy Act lamar SULFA (sulfonamide) 0 Drug allergy Hives Act lamar SUCCINYLCHOLINE 05656 Drug allergy IRREGULAR HEART Ac tive Procedures Unknown or Not Available. History of Immunizations Unknown or Not Available. Problems Unknown or Not Available. Results Unknown or Not Available. Active Medications Medication Code Dose Units Frequency Route Modificatio n Start Date/Time traZODone hydrochloride 100MG Oral Tablet 976245 100 MILLIGRAMS BEDTIME ORAL 7 09:49 Prescription Detail TAKE 100 MILLIGRAMS ORAL BEDTIME Medications Administered During Visit Unknown or Not Available. Encounters Encounter Diagnosis Diagnosis Code Start Date Unspecified fracture of shaf t of humerus, left arm, subsequent encounter for fracture with routine healing [id number] 07/26/2021 Social History Smoking Status Code Start Date End Date Former smoker [id number] 04/25/2019 Patient Decision Aids Unknown or Not Available. Discharge Instructions You were admitted to [facility] on 07/26/2021 09:12 with a principal diagnosis of Unsp fx shaft of humerus, left arm, subs for fx w routn heal You were discharged from [facility] on 08/16/2021 10:47 Should you have any questions prior to [...]
--- OUTSIDE RECORDS SUMMARY | 2023-12-27 13:07 | XMS_ITS | CCD ---
Author Name Unknown Address [address] [place] [address] [phone] Organization Unknown Address [address] [place] [address] [phone] Care Team Providers Care Delivery Department Supervisor Name Role Phone ANA CORTÉS MD Attending Physician [phone] ANA CORTÉS MD Er Physician [phone] Vital Signs Unknown or Not Available. Allergies Allergy Code Allergy Type Reaction Status PENICILLINS (CLASS) 0 Drug allergy Act lamar SULFA (sulfonamide) 0 Drug allergy Hives Act lamar SUCCINYLCHOLINE 35534 Drug allergy IRREGULAR HEART Ac tive Procedures Unknown or Not Available. History of Immunizations Unknown or Not Available. Problems Unknown or Not Available. Results Unknown or Not Available. Active Medications Medication Code Dose Units Frequency Route Modificatio n Start Date/Time traZODone hydrochloride 100MG Oral Tablet 510210 100 MILLIGRAMS BEDTIME ORAL 7 09:49 Prescription Detail TAKE 100 MILLIGRAMS ORAL BEDTIME Medications Administered During Visit Unknown or Not Available. Encounters Encounter Diagnosis Diagnosis Code Start Date Other displaced fracture of upper end of left humerus, initial encounter for closed fracture [id number] 07/11/2021 Social History Smoking Status Code Start Date End Date Former smoker [id number] 04/25/2019 Patient Decision Aids Unknown or Not Available. Discharge Instructions You were admitted to [facility] on 07/11/2021 18:25 with a principal diagnosis of Other displaced fracture of upper end of left humerus, initial encounter for closed fracture You were discharged from [facility] on 07/11/2021 20:02 Should you have any questions prior to discharge, please contact a member of your healthcare team. If you have left the hospital and have any questions, please contact your primary care physician. Chief Complaint and Reason For Visit Chief Complaint Date of Onset LEFT SHOULDER INJURY Function Status Unknown or Not Available. Plan of Care Unknown or Not Available. Referral/Transition of Care Unknown or Not Available.
--- OUTSIDE RECORDS SUMMARY | 2023-12-27 13:07 | XMS_ITS | CCD ---
Author Name Unknown Address [address] [place] [address] [phone] Organization Unknown Address [address] [place] [address] [phone] Care Team Providers Care Bistro Server Name Role Phone АНДРЕЙ ALEMAN MD Attending Physician [phone] Vital Signs Unknown or Not Available. Allergies Allergy Code Allergy Type Reaction Status PENICILLINS (CLASS) 0 Drug allergy Act lamar SULFA (sulfonamide) 0 Drug allergy Hives Act lamar SUCCINYLCHOLINE 13830 Drug allergy IRREGULAR HEART Ac tive Procedures Unknown or Not Available. History of Immunizations Unknown or Not Available. Problems Unknown or Not Available. Results Unknown or Not Available. Active Medications Medication Code Dose Units Frequency Route Modificatio n Start Date/Time traZODone hydrochloride 100MG Oral Tablet 713212 100 MILLIGRAMS BEDTIME ORAL 7 09:49 Prescription Detail TAKE 100 MILLIGRAMS ORAL BEDTIME Medications Administered During Visit Unknown or Not Available. Encounters Encounter Diagnosis Diagnosis Code Start Date Fracture of upper end of humerus [id number] 08/09/2021 Social History Smoking Status Code Start Date End Date Former smoker [id number] 04/25/2019 Patient Decision Aids Unknown or Not Available. Discharge Instructions You were admitted to [facility] 01 on 08/09/2021 10:59 with a principal diagnosis of Unspecified fracture of upper end of left humerus, subsequent encounter for fracture with routine healing You were discharged from [facility] on 08/09/2021 10:59 Should you have any questions prior to [...]
--- OUTSIDE RECORDS SUMMARY | 2023-12-27 13:07 | XMS_ITS | CCD ---
Author Name Unknown Address [address] [place] [address] [phone] Organization Unknown Address [address] [place] [address] [phone] Care Team Providers Care Precision Lens Technician Name Role Phone PATIENCE BURDEN NP Attending Physician [phone] Vital Signs Unknown or Not Available. Allergies Allergy Code Allergy Type Reaction Status PENICILLINS (CLASS) 0 Drug allergy Act lamar SULFA (sulfonamide) 0 Drug allergy Hives Act lamar SUCCINYLCHOLINE 89553 Drug allergy IRREGULAR HEART Ac tive Procedures Procedure Code Procedure Type Date Closed Treatment, Humeral Shaft FX;w/o Manipulation 24 500 CPT 07/15/2021 History of Immunizations Unknown or Not Available. Problems Unknown or Not Available. Results Unknown or Not Available. Active Medications Medication Code Dose Units Frequency Route Modificatio n Start Date/Time traZODone hydrochloride 100MG Oral Tablet 074744 100 MILLIGRAMS BEDTIME ORAL 7 09:49 Prescription Detail TAKE 100 MILLIGRAMS ORAL BEDTIME Medications Administered During Visit Unknown or Not Available. Encounters Encounter Diagnosis Diagnosis Code Start Date Unspecified fracture of uppe r end of left humerus, initial encounter for closed fracture [id number] 07/15/2021 Social History Smoking Status Code Start Date End Date Former smoker [id number] 04/25/2019 Patient Decision Aids Unknown or Not Available. Discharge Instructions You were admitted to [facility] on 07/15/2021 12:54 with a principal diagnosis of Unspecified fracture of upper end of left humerus, initial encounter for closed fracture You had the following procedures done:Closed Treatment, Humeral Shaft FX;w/o Manipulation You were discharged from [facility] on 07/15/2021 12:54 Should you have any questions prior to [...]
--- OUTSIDE RECORDS SUMMARY | 2023-12-27 13:07 | XMS_ITS | CCD ---
Author Name Unknown Address [address] [place] [address] [phone] Organization Unknown Address [address] [place] [address] [phone] Care Team Providers Care [employer] Name Role Phone ANÍBAL MACIEL Attending Physician [phone] Vital Signs Unknown or Not Available. Allergies Allergy Code Allergy Type Reaction Status PENICILLINS (CLASS) 0 Drug allergy Act lamar SULFA (sulfonamide) 0 Drug allergy Hives Act lamar SUCCINYLCHOLINE 57756 Drug allergy IRREGULAR HEART Ac tive Procedures Unknown or Not Available. History of Immunizations Unknown or Not Available. Problems Unknown or Not Available. Results Unknown or Not Available. Active Medications Medication Code Dose Units Frequency Route Modificatio n Start Date/Time traZODone hydrochloride 100MG Oral Tablet [id number] 100 MILLIGRAMS BEDTIME ORAL 7 09:49 Prescription Detail TAKE 100 MILLIGRAMS ORAL BEDTIME Medications Administered During Visit Unknown or Not Available. Encounters Encounter Diagnosis Diagnosis Code Start Date Procedure and treatment not carried out because of patient's decision for other reasons [id number] 05/10/2021 Social History Smoking Status Code Start Date End Date Former smoker [id number] 04/25/2019 Patient Decision Aids Unknown or Not Available. Discharge Instructions You were admitted to [facility] 01 on 05/10/2021 07:58 with a principal diagnosis of Procedure and treatment not carried out because of patient's decision for other reasons You were discharged from [facility] 01 on 05/10/2021 07:58 Should you have any questions prior to [...]
--- OUTSIDE RECORDS SUMMARY | 2023-12-27 13:07 | XMS_ITS | CCD ---
Author Name Unknown Address [address] [place] [address] [phone] Organization Unknown Address [address] [place] [address] [phone] Care Team Providers Care Clinic Office Assistant Name Role Phone АНДРЕЙ ALEMAN MD Attending Physician [phone] Vital Signs Unknown or Not Available. Allergies Allergy Code Allergy Type Reaction Status PENICILLINS (CLASS) 0 Drug allergy Act lamar SULFA (sulfonamide) 0 Drug allergy Hives Act lamar SUCCINYLCHOLINE 04249 Drug allergy IRREGULAR HEART Ac tive Procedures Unknown or Not Available. History of Immunizations Unknown or Not Available. Problems Unknown or Not Available. Results Unknown or Not Available. Active Medications Medication Code Dose Units Frequency Route Modificatio n Start Date/Time traZODone hydrochloride 100MG Oral Tablet [id number] 100 MILLIGRAMS BEDTIME ORAL 7 09:49 Prescription Detail TAKE 100 MILLIGRAMS ORAL BEDTIME Medications Administered During Visit Unknown or Not Available. Encounters Encounter Diagnosis Diagnosis Code Start Date Fracture of upper end of humerus [id number] 07/26/2021 Social History Smoking Status Code Start Date End Date Former smoker [id number] 04/25/2019 Patient Decision Aids Unknown or Not Available. Discharge Instructions You were admitted to [facility] 01 on 07/26/2021 10:46 with a principal diagnosis of Other nondisplaced fracture of upper end of left humerus, subsequent encounter for fracture with routine healing You were discharged from [facility] on 07/26/2021 10:46 Should you have any questions prior to [...]
[2023-12-27 23:33] LABS: ALT 27 U/L (14-59); AST 20 U/L (15-37); Albumin 3.7 g/dL (3.4-5.0); Alkaline Phosphatase 102 U/L (46-116); Anion Gap 9.3 mmol/L (3-11); BUN 15 mg/dL (7-18); Bilirubin, Total 0.2 mg/dL (0.2-1.0); CO2 27.7 mmol/L (21.0-32.0); CREATININE 0.6 mg/dL (0.55-1.02); Calcium 9.1 mg/dL (8.5-10.1); Chloride 103 mmol/L (98-107); Estimated GFR 100.17 (mL/min/1.73m2); Glucose 78 mg/dL (74-106); Potassium 4.2 mmol/L (3.5-5.1); Sodium 140 mmol/L (136-145); TSH (W/Ref FT4) 0.86 uIU/mL (0.36-3.74); Total Protein 7.5 g/dL (6.4-8.2)
[2023-12-27 23:47] LABS: Calculated LDL 49 mg/dL (<100); Cholesterol 151 mg/dL (<200); HDL Cholesterol 66 mg/dL (40-60); Triglyceride 181 mg/dL (<150)
== END 2023-12-27 13:02 | disposition home or self-care (01) ==
LOC: NCHCN 13:01
PROVIDERS: PCP Family Medicine; Visit Provider Family Medicine
DX: E78.5 Hyperlipidemia, unspecified (principal); E04.1 Nontoxic single thyroid nodule
CPT/HCPCS: 80053; 80061; 84443

== ENCOUNTER 2025-01-30 13:28 | Outpatient (REF) | payer MEDICARE, SELFPAY ==
[2025-01-30 21:52] LABS: ALT 28 U/L (14-59); AST 24 U/L (15-37); Alkaline Phosphatase 82 U/L (46-116); Anion Gap 7.6 mmol/L (3-11); BUN 10 mg/dL (7-18); Bilirubin, Total 0.5 mg/dL (0.2-1.0); CO2 29.4 mmol/L (21.0-32.0); CREATININE 0.6 mg/dL (0.55-1.02); Calcium 9.7 mg/dL (8.5-10.1); Calculated LDL 31 mg/dL (<100); Chloride 104 mmol/L (98-107); Cholesterol 146 mg/dL (<200); Estimated GFR 99.55 (mL/min/1.73m2); Glucose 94 mg/dL (74-106); HDL Cholesterol 63 mg/dL (>or=50); Sodium 141 mmol/L (136-145); TSH (W/Ref FT4) 1.56 uIU/mL (0.36-3.74); Total Protein 7.4 g/dL (6.4-8.2); Triglyceride 262 mg/dL (<150)
== END 2025-01-30 13:29 | disposition home or self-care (01) ==
LOC: NCHCN 13:28
PROVIDERS: PCP Family Medicine; Visit Provider Family Medicine
DX: E78.5 Hyperlipidemia, unspecified (principal); E04.1 Nontoxic single thyroid nodule
CPT/HCPCS: 80053; 80061; 84443